=== PATIENT | female | born 1965 | race Caucasian/White ===

== ENCOUNTER 2021-09-07 12:47 | Outpatient (REF) | payer OTHER, SELFPAY ==
--- NOTE | 2021-09-07 15:03 | PFT_ITS ---
FLOWS: FEV1 73% of predicted at 2.22 L. FVC 92% of predicted at 3.59 L. FEV1 to FVC ratio of 0.62. No bronchodilator response. LUNG VOLUMES: Total lung capacity 107% of predicted at 6.10 L. Residual volume 112% of predicted at 2.39 L. Slow vital capacity 105% of predicted at 3.71 L. Expiratory reserve volume 67% of predicted at 0.74 L. Diffusion capacity is mildly decreased. IMPRESSION: Moderate obstructive ventilatory defect with no bronchodilator response. Decreased diffusion capacity suggests emphysema. Louis Muller MD AP/MODL / [id number]
== END 2021-09-07 12:48 | disposition home or self-care (01) ==
LOC: HO.RESP 12:47
PROVIDERS: PCP Nurse Practitioner Family; Visit Provider Nurse Practitioner Family
DX: R06.01 Orthopnea (principal)
CPT/HCPCS: 94060; 94727; 94729

== ENCOUNTER 2021-09-14 14:34 | Outpatient (REF) | payer OTHER, SELFPAY ==
--- NOTE | ~2021-09-14 | CT_ITS ---
EXAMINATION: CT CHEST SCREENING CLINICAL INFORMATION: Nicotine dependence. COMPARISON: CT chest 12/24/2006. TECHNIQUE: Multidetector volumetric CT imaging of the chest is performed without contrast using low dose technique. Additional 2D coronal and sagittal reformatted images and axial 3D maximum intensity projection (MIP) images are generated on the CT workstation. This CT examination was performed using dose optimization techniques as appropriate, variously including the following: *Automated exposure control *Adjustment of mA and/or kV according to patient size (this includes techniques or standardized protocols for targeted exams where dose is matched to indication/reason for exam; i.e. extremities or head) *Use of iterative reconstruction technique DLP: 53 mGy-cm FINDINGS: LUNGS: The lungs are well expanded and clear of acute pneumonic process. There are no pulmonary nodules, mass or consolidation. MEDIASTINUM: The thyroid lobes are symmetric and normal. The central trachea and the bronchi are widely patent. Heart size and the great vessels are normal caliber. There is no pericardial effusion. There is trace coronary artery calcifications present. PLEURA: There is no pleural effusion. No pleural mass or thickening. AXILLA: No abnormal-sized axillary lymph nodes seen. The chest wall is unremarkable. UPPER ABDOMEN: Visualized liver, spleen, pancreas and bilateral adrenal glands are unremarkable. OSSEOUS STRUCTURES: No lytic or sclerotic process seen. CT/CT lung screening IMPRESSION: Unremarkable CT chest without contrast. ASSESSMENT: Lung-RADS category 1: Negative RECOMMENDATION: Low-dose annual CT chest.
== END 2021-09-14 14:35 | disposition home or self-care (01) ==
LOC: HO.CT 14:34
PROVIDERS: PCP Nurse Practitioner Family; Visit Provider Physician Assistant Medical
DX: F17.210 Nicotine dependence, cigarettes, uncomplicated (principal)
CPT/HCPCS: 71271; G0296

== ENCOUNTER 2021-10-03 06:00 | Outpatient (REF) | payer OTHER, SELFPAY ==
[2021-10-03 06:17] LABS: MANUAL DIFF FLAG NO
[2021-10-03 07:49] LABS: Basophils Absolute Auto 0.1 X10*3/uL (0.0-0.2); Basophils Percent Auto 1.2 % (0-2); Eosinophils Absolute Auto 0.4 X10*3/uL (0.0-0.4); Eosinophils Percent Auto 4.4 % (0-4); Hematocrit 46.3 % (37.0-47.0); Hemoglobin 15.6 g/dl (12.0-16.0); Imm Gran Abs Auto 0.02 X10*3/uL (0.00-0.03); Imm Gran Pct Auto 0.2 % (0.0-0.4); Lymphocytes Absolute Auto 4.2 X10*3/uL (1.2-4.9); Lymphocytes Percent Auto 48.9 % (20-40); Mean Corpuscular HGB Conc 33.7 g/dl (31.0-35.0); Mean Corpuscular Volume 97.9 fL (80.0-98.0); Mean Platelet Volume 10.2 fL (9.4-12.3); Monocytes Absolute Auto 0.7 X10*3/uL (0.1-1.2); Monocytes Percent Auto 8.5 % (2-11); Neutrophils Absolute Auto 3.1 x10*3/uL (2.0-8.3); Neutrophils Percent Auto 36.8 % (45-73); Platelet Count 294 X10*3/uL (160-400); Red Blood Count 4.73 X10*6/uL (4.20-5.50); Red Cell Distribution Width 12.5 % (11.0-16.0); White Blood Count 8.5 X10*3/uL (4.8-10.8)
[2021-10-03 08:10] LABS: Alanine Aminotransferase 16 U/L (0-31); Albumin Level 4.4 g/dL (3.5-5.0); Alkaline Phosphatase 79 U/L (39-117); Anion Gap 17 (12-20); Aspartate Amino Transferase 24 U/L (5-31); Bilirubin Total 0.5 mg/dL (0.0-1.0); Blood Urea Nitrogen 12 mg/dL (9-16); Calcium 10.2 mg/dL (8.4-10.2); Carbon Dioxide 28 mmol/L (22-29); Chloride 102 mmol/L (96-108); Cholesterol 241 mg/dL; Estimated Glomerular Filt Rate > 60; Glucose Fasting 89 mg/dL (60-99); HDL Cholesterol 86 mg/dL; LDL Cholesterol Calculated 117 mg/dl; Potassium 5.1 mmol/L (3.3-5.1); Sodium 142 mmol/L (135-145); Total Protein 7.3 g/dL (6.5-8.0); Triglycerides 192 mg/dL
[2021-10-03 08:34] LABS: Folate > 20.0 ng/mL (> or = 4.0); Vitamin B12 481 pg/mL (200-900)
[2021-10-03 08:36] LABS: TSH reflex Free T4 1.08 uIU/mL (0.32-4.0); Vitamin D 25-OH Total 87.6 ng/mL (>30)
== END 2021-10-03 06:01 | disposition home or self-care (01) ==
LOC: HO.LAB 06:00
PROVIDERS: PCP Nurse Practitioner Family; Visit Provider Nurse Practitioner Family
DX: Z13.220 Encounter for screening for lipoid disorders (principal); Z13.29 Encounter for screening for other suspected endocrine disorder; R06.01 Orthopnea; Z76.89 Persons encountering health services in other specified circumstances
CPT/HCPCS: 36415; 80053; 80061; 82306; 82607; 82746; 84443; 85025

== ENCOUNTER 2022-06-19 13:16 | Outpatient (REF) | payer OTHER, SELFPAY ==
[2022-06-25 09:14] LABS: HPV 16 RNA NOT DETECTED (NOT DETECTED); HPV mRNA E6/E7 rflx Detected (Not Detected)
== END 2022-06-19 13:17 | disposition home or self-care (01) ==
LOC: HO.LNP 13:16
PROVIDERS: PCP Nurse Practitioner Family; Visit Provider Advanced Practice Midwife
DX: Z01.419 Encounter for gynecological examination (general) (routine) without abnormal findings (principal)
CPT/HCPCS: 87624; 87625; 88142

== ENCOUNTER 2022-07-24 15:39 | Outpatient (REF) | payer OTHER, SELFPAY ==
--- NOTE | ~2022-07-24 | MM_ITS ---
EXAMINATION: MM SCREENING DIGITAL BREAST TOMOSYNTHESIS, BILATERAL CLINICAL INFORMATION: Screening. Asymptomatic. The lifetime risk of breast cancer based on the Tyrer-Cuzick Model is 16%. COMPARISON: Mammography: 04/04/2010 TECHNIQUE: Digital breast tomosynthesis is performed in both the craniocaudal and mediolateral oblique views along with computer-aided detection (CAD). Synthesized 2D images are generated from the tomosynthesis. FINDINGS: The breasts are heterogeneously dense, which may obscure small masses (ACR BI-RADS breast composition Category c). Breast tissue composition borders on extremely dense. There is a fibronodular parenchymal pattern similar to remote prior exam. No architectural abnormality or developing density. No significant masses. There are probable benign fine calcifications retroareolar right breast on synthesized 2-D views. Patient will be recalled to further characterize with magnification views. Other scattered bilateral calcifications are unremarkable. The axilla are unremarkable. MM/MM tomosynthesis screening BI IMPRESSION: Right: -Fine calcifications retroareolar right breast. Left: -No mammographic evidence of malignancy. ASSESSMENT: BI-RADS 0: Incomplete - Need Additional Imaging Evaluation RECOMMENDATION: 1. Additional views right breast (magnification CC, magnification ML). 2. Radiology department staff will contact the patient for additional imaging. This patient's information was entered into a reminder system with a target due date for their next mammogram.
== END 2022-07-24 15:40 | disposition home or self-care (01) ==
LOC: HO.MAMMO 15:39
PROVIDERS: PCP Nurse Practitioner Family; Visit Provider Advanced Practice Midwife
DX: Z12.31 Encounter for screening mammogram for malignant neoplasm of breast (principal)
CPT/HCPCS: 77063; 77067

== ENCOUNTER 2022-07-30 11:25 | Day surgery (SDC) | payer OTHER, SELFPAY ==
--- NOTE | 2022-07-29 11:46 | HO.ANESPROP2 ---
Documented by User: Adali Hare NP 07/29/22 11:47 HPI - Anesthesia Eval Consult details Narrative: 56yo F for Colonoscopy PMFSH Active Problems Active Problems: All Active Problems (Updated 06/19/22 @ 13:38 by Emma Lugo Eyal) Hypertension (Acute) Hyperlipidemia (Acute) Adult general medical exam (Acute) Cervical cancer screening (Acute) Elevated blood pressure reading (Acute) Screening for colon cancer (Acute) Screening for breast cancer (Acute) Insomnia (Acute) Personal history of nicotine dependence (Acute) Hearing loss in right ear (Acute) Tinnitus of right ear (Acute) COPD (chronic obstructive pulmonary disease) (Acute) Wheezing (Acute) Breathlessness lying flat (Acute) Past Medical History Medical History (Updated 07/30/22 @ 11:45 by Mylene Rush RN) COPD (chronic obstructive pulmonary disease) Hearing loss in right ear High cholesterol Hypertension Personal history of nicotine dependence Tinnitus of right ear Family History Family History Father Smoker CHF (congestive heart failure) Mother Non Hodgkin's lymphoma Pacemaker Lung cancer Paternal Grandmother History of breast cancer Surgical History Surgical History History of tonsillectomy Status post LEEP (loop electrosurgical excision procedure) of cervix Social History Social History Housing: House Alcohol intake: current Alcohol intake frequency: 0-2 drinks per day Alcohol type: hard liquor Patient Tobacco Use Status: Current everyday Tobacco user Tobacco use type: Cigarette Cigarettes Per Day: 20 Years Smoked: (onset 15yo, 1ppd x 40yrs, 40pyh) e-Cigarette/Vaping Use: Never Used Second Hand Smoke Exposure: Yes Use of substances other than those prescribed or required for medical reasons: No Are you DNR?: No Advance Directives: No Advance Directives Information Provided: Yes service: No Current occupational status: unemployed Sexual orientation: Straight/Heterosexual Gender identity: Female Cognitive needs: No Hearing needs: Yes (hearing aide Right Ear) Vision needs: Yes (glasses) Meds Allergies Allergy/AdvReac Type Severity Reaction Status Date / Time Penicillin Allergy Unknown Unknown Uncoded 07/30/22 11:44 Exam Exam Date and Time: July 29, 2022 1146 Assessment and Plan Assessment Anesthesia Assessment: Chart Reviewed Documented by User: Anne Rivero MD 07/30/22 12:42 PMFSH Past Medical History Medical History (Updated 07/30/22 @ 11:45 by Mylene Rush, RN) COPD (chronic obstructive pulmonary disease) Hearing loss in right ear High cholesterol Hypertension Personal history of nicotine dependence Tinnitus of right ear Family History Family History Father Smoker CHF (congestive heart failure) Mother Non Hodgkin's lymphoma Pacemaker Lung cancer Paternal Grandmother History of breast cancer Family history of problems with anesthesia: No Surgical History Surgical History History of tonsillectomy Status post LEEP (loop electrosurgical excision procedure) of cervix History of Problems with Anesthesia: No Social History Social History Housing: House Alcohol intake: current Alcohol intake frequency: 0-2 drinks per day Alcohol type: hard liquor Patient Tobacco Use Status: Current everyday Tobacco user Tobacco use type: Cigarette Cigarettes Per Day: 20 Years Smoked: (onset 15yo, 1ppd x 40yrs, 40pyh) e-Cigarette/Vaping Use: Never Used Second Hand Smoke Exposure: Yes Use of substances other than those prescribed or required for medical reasons: No Are you DNR?: No Advance Directives: No Advance Directives Information Provided: Yes service: No Current occupational status: unemployed Sexual orientation: Straight/Heterosexual Gender identity: Female Cognitive needs: No Hearing needs: Yes (hearing aide Right Ear) Vision needs: Yes (glasses) Meds Allergies Allergy/AdvReac Type Severity Reaction Status Date / Time Penicillin Allergy Unknown Unknown Uncoded 07/30/22 11:44 Exam Airway Mallampati Class: II TM Dist: >3cm Neck ROM: Full Loose/Missing/Broken Teeth: Lower (missing lower front teeth) Heart: rr Lungs: cta Assessment and Plan Assessment Anesthesia Assessment: Anesthesia Plan Discussed and Smoking Cess. Discussed Final Anesthetic Review Family History of Problems with Anesthesia: No History of Problems with Anesthesia: No NPO: Yes ASA Class: II Final Preanesthetic Review: No Changes in Pt Med Stat, Meds/Allgs Chart Reviewed, Consent Obtained/Reviewed and Anes Risks/Benef Reviewed Patient Risk: Low Procedure Risk: Low Anesthetic Plan Anesthetic Plan: MAC: Disposition: Standard PACU
[2022-07-30 11:46] VITALS: BMI 26.6
[2022-07-30 11:51] VITALS: BP 171/97; PULSE 116; RESP 16; TEMP 36.8; O2SAT 96
[2022-07-30] MEDS: Lactated Ringers 1,000 ML 100 ML IVCONT (12:22)
--- NOTE | 2022-07-30 13:13 | P.HPSUR_ITS ---
Pre-Procedural Eval Section A Date of Service: 07/30/22 Section B Chief Complaint: screening Relevant Family History (Specify if Yes): No Relevant Social History: Tobacco Use (alcohol use ) Present Medications: see Short Stay Collaborative assessment Medical History: Significant History (COPD (chronic obstructive pulmonary disease) Hearing loss in right ear High cholesterol Hypertension Personal histor y of nicotine dependence Tinnitus of right ear) History of Previous Operations: Relevant previous surgery/procedure and date(s) (History of tonsillectomy Status post LEEP (loop electrosurgical excision procedure) of cervix) Allergies: Allergies Allergy/AdvReac Type Severity Reaction Status Date / Time Penicillin Allergy Unknown Unknown Uncoded 07/30/22 11:44 Review of Systems Sugical H&P ROS: Negative: Constitution, Cardiovascular, Respiratory, Neurolo gical, Psychiatric, Hem-Onc, Allergic/Immunologic, Gastrointestinal, Genitourinary, Musculoskeletal, Integumentary, Endocrine and Eyes/Ears/Nose/Throat Exam Surgical H&P Exam: Normal: HEENT, Normal: Heart, Normal: Lungs, Normal: Extremities, Normal: Abdomen, Normal: Skin and Normal: Neurological Plan Diagnosis/Plan: Unchanged I have reviewed the history and physical and performed a pertinent physical examination on my patient. No changes have occurred unless specified. Time Spent With Patient Time: Total time managing care of this patient today ____ minutes.
--- NOTE | 2022-07-30 13:15 | W.PM.OPN ---
Operative Note Operative Note Date of Service: 07/30/22 Narrative: Operative Information Procedure Description: Colonoscopy Indication: screening Anesthesia: MAC COLONOSCOPY Instrument: Olympus variable stiffness pediatric scope 190L Colonoscopy Monitoring: Vital signs and clinical assessment, continuous EKG monitoring, Pulse oximetry, Carbon Dioxide monitoring and blood pressure monitoring were done throughout the procedure. Colon withdrawal time was [] minutes. Procedure: The patient was placed in the left lateral decubitis position and pre-procedure medications were administered. After a digital rectal examination of the ano-rectum, the video colonoscope was inserted into the rectum and advanced through the colon to the cecum/TI. The colonoscope was slowly withdrawn in a retrograde panoramic fashion and the colon mucosa was carefully examined including a retroflexed view of the rectum. Findings and interventions are described below. Procedure Difficulty: moderate Findings: Terminal Ileum-normal Cecum:normal Ascending Colon: normal Transverse Colon -normal Descending Colon:normal Sigmoid Colon: moderate severe diverticulosis Rectum: Retroflexion with medium sized internal hemorrhoids, grade I Anorectum - normal Colon preparation: [place] Bowel Preparation Scale Right colon; 2 Transverse colon: 2 Left colon; 2 (0 = Unprepared colon segment with mucosa not seen due to solid stool that cannot be cleared. 1 = Portion of mucosa of the colon segment seen, but other areas of the colon segment not well seen due to staining, residual stool and/or opaque liquid. 2 = Minor amount of residual staining, small fragments of stool and/or opaque liquid, but mucosa of colon segment seen well. 3 = Entire mucosa of colon segment seen well with no residual staining, small fragments of stool or opaque liquid) Impression and Post Procedure Diagnosis: internal hemorrhoids diverticular disease Plan: High fiber diet leaflet Avoid straining at stool, epsom salts and sitz bath, anusol supps or cream Repeat Colonoscopy in 10 years or earlier if clinically indicated Above findings were reviewed with the patient and relevant handouts were provided if indicated.
[2022-07-30 13:39] VITALS: BP 117/69; PULSE 98; RESP 16; TEMP 36.7; O2SAT 98
[2022-07-30 13:55] VITALS: BP 156/92; PULSE 97; RESP 18; TEMP 36.1; O2SAT 98
== END 2022-07-30 15:08 | disposition home or self-care (01) ==
PROVIDERS: PCP Nurse Practitioner Family; Visit Provider Internal Medicine Gastroenterology
PROC: 0DJD8ZZ Inspection of Lower Intestinal Tract, Via Natural or Artificial Opening Endoscopic (ICD-10-PCS; CPT 45378; principal; 2022-07-30 14:40)
DX: Z12.11 Encounter for screening for malignant neoplasm of colon (principal); K57.30 Diverticulosis of large intestine without perforation or abscess without bleeding; K64.0 First degree hemorrhoids; J44.9 Chronic obstructive pulmonary disease, unspecified; H91.91 Unspecified hearing loss, right ear; H93.11 Tinnitus, right ear; I10 Essential (primary) hypertension; E78.5 Hyperlipidemia, unspecified; Z79.899 Other long term (current) drug therapy; Z88.0 Allergy status to penicillin; F17.210 Nicotine dependence, cigarettes, uncomplicated
CPT/HCPCS: 45378; J2250

== ENCOUNTER 2022-08-07 12:47 | Outpatient (REF) | payer OTHER, SELFPAY ==
--- NOTE | ~2022-08-07 | MM_ITS ---
EXAMINATION: MM DIAGNOSTIC DIGITAL MAMMOGRAPHY, RIGHT CLINICAL INFORMATION: Recall from screening for calcifications retroareolar right breast. COMPARISON: Mammography: 07/24/2022, 04/04/2010 TECHNIQUE: Digital mammography is performed in the following views: Magnification right CC, magnification right ML x2. FINDINGS: The breasts are heterogeneously dense, which may obscure small masses (ACR BI-RADS breast composition Category c). The additional magnification views confirm benign coarse retroareolar calcifications, similar to remote prior exam 2010. There are no interval suspicious or pleomorphic calcifications. No significant changes. Results are discussed with the patient at time of visit. MM/MM added views RT IMPRESSION: -Benign retroareolar calcifications. -No significant changes from prior exam 2010. ASSESSMENT: BI-RADS 2: Benign RECOMMENDATION: Routine annual mammography screening. This patient's information was entered into a reminder system with a target due date for their next mammogram.
== END 2022-08-07 12:48 | disposition home or self-care (01) ==
LOC: HO.MAMMO 12:47
PROVIDERS: PCP Nurse Practitioner Family; Visit Provider Nurse Practitioner Family
DX: R92.1 Mammographic calcification found on diagnostic imaging of breast (principal)
CPT/HCPCS: 77065

== ENCOUNTER 2022-08-08 10:04 | Outpatient (REF) | payer OTHER, SELFPAY | END 2022-08-08 10:05 | disposition home or self-care (01) | LOC: HO.LNP 10:04 | PROVIDERS: PCP Nurse Practitioner Family; Visit Provider Obstetrics & Gynecology | DX: R87.810 Cervical high risk human papillomavirus (HPV) DNA test positive (principal); R87.610 Atypical squamous cells of undetermined significance on cytologic smear of cervix (ASC-US) | CPT/HCPCS: 57454; 88305 ==

== ENCOUNTER 2022-08-22 13:33 | Outpatient (AMB) | payer OTHER, SELFPAY ==
--- NOTE | 2022-08-22 13:37 | MHC.OFFVIS ---
Intake Vital Signs 08/22/22 13:39 Height 5 ft 8 in Weight 171 lb 15.369 oz BMI 26.1 BP 140/92 H Intake Visit Reasons: colpo results [employer] Required: No Information Interpreted: non-clinical & clinical Accompanied by: Self / Same As Patient Allergies Penicillin Allergy (Unknown, Uncoded 08/22/22 13:40) Unknown HPI HPI Comments History of Present Illness Details Presenting post colpo for follow-up. The patient is doing well with no complaints. The pathology showed the following: A. Cervix, 6:00, biopsy: Squamous and endocervical glandular mucosa with inflammation and reactive and atrophic changes; negative for dysplasia. B. Cervix, 11:00, biopsy: Squamous and endocervical glandular mucosa with inflammation and reactive changes; negative for dysplasia. C. Endocervix, curettage: Squamous and endocervical glandular mucosa with reactive changes; negative for dysplasia. [facility] Medical History COPD (chronic obstructive pulmonary disease) Hearing loss in right ear High cholesterol Hypertension Personal history of nicotine dependence Tinnitus of right ear Surgical History History of tonsillectomy Hx of colonoscopy Status post LEEP (loop electrosurgical excision procedure) of cervix Family History Father Smoker CHF (congestive heart failure) Mother Non Hodgkin's lymphoma Pacemaker Lung cancer Paternal Grandmother History of breast cancer Social History Housing: House Alcohol intake: current Alcohol intake frequency: 0-2 drinks per day Alcohol type: hard liquor Patient Tobacco Use Status: Current everyday Tobacco user Tobacco use type: Cigarette Cigarettes Per Day: 20 Years Smoked: (onset 15yo, 1ppd x 40yrs, 40pyh) e-Cigarette/Vaping Use: Never Used Second Hand Smoke Exposure: Yes service: No Current occupational status: unemployed Sexual orientation: Straight/Heterosexual Gender identity: Female Cognitive needs: No Hearing needs: Yes (hearing aide Right Ear) Vision needs: Yes (glasses) Review of Systems Const All systems reviewed & are unremarkable except as noted in HPI and below Reports as per HPI and Reports no additional complaints GI Reports no additional complaints Reports no additional complaints Physical Exam Vital Signs: Last Vital Signs BP 140/92 H 08/22/22 13:39 BMI result Body Mass Index 26.1 Assessment & Plan Assessment & Plan (1) ASCUS with positive high risk HPV cervical: Code(s): R87.610 - Atypical squamous cells of undetermined significance on cytologic smear of cervix (ASC-US); R87.810 - Cervical high risk human papillomavirus (HPV) DNA test positive Plan: Discussed with the patient the pathology results of the colposcopy biopsies & endocervical curettage ( negative). Discussed with the patient the sensitivity specificity, positive and negative predictive value in detecting cervical cancer in addition discussed the regression, persistence and progression rates. Recommended co-testing in 12 months, if cytology and or HPV are abnormal will proceed was colposcopy biopsy and endocervical curettage. Instructions given to the patient to schedule a co test appointment in 1 year. All questions answered the patient verbalized understanding. Coding Level of Care Code Est Pt Level 3 (79671) Diagnoses ASCUS with positive high risk HPV cervical R87.610; R87.810
[2022-08-22 13:39] VITALS: BP 140/92; BMI 26.1
== END 2022-08-23 07:22 | disposition home or self-care (01) ==
LOC: HO.HWS 13:33
PROVIDERS: PCP Nurse Practitioner Family; Visit Provider Obstetrics & Gynecology
DX: R87.610 Atypical squamous cells of undetermined significance on cytologic smear of cervix (ASC-US) (principal); R87.810 Cervical high risk human papillomavirus (HPV) DNA test positive
CPT/HCPCS: 99213

== ENCOUNTER → 2022-08-22 13:33 | Outpatient (BNVA) | payer OTHER, SELFPAY | PROVIDERS: PCP Nurse Practitioner Family; Visit Provider Obstetrics & Gynecology ==

== ENCOUNTER 2022-10-02 15:21 | Outpatient (AMB) | payer OTHER, SELFPAY ==
[2022-10-02 15:26] VITALS: BP 158/98; PULSE 97; O2SAT 96; BMI 26.6
--- NOTE | 2022-10-02 15:26 | A.OFFPC_ITS ---
Vital Signs 10/02/22 15:26 10/02/22 16:02 Height 5 ft 8 in Weight 175 lb BMI 26.6 BP 158/98 H 158/92 H Blood Pressure Location Lt brachial Lt brachial Position Sitting Sitting Pulse 97 Pulse Source Pulse Oximeter Temp Source Skin Pulse Oximetry (%) 96 Oxygen Delivery Method Room Air Intake Visit Reasons: PE Intake Note: Patient is here today for a physical. Allergies Penicillin Allergy (Unknown, Uncoded 10/02/22 15:42) Unknown Medication List - Last Reconciled 10/02/22 by CHI Brady albuterol sulfate 90 mcg/actuation (Ventolin HFA) 2 puffs inhalation Q4-6H PRN blood pressure monitor As directed lisinopril 5 mg PO DAILY nicotine 1 patch transdermal Q24H Tobacco use date assessed: 10/02/22 Dental Screening Dental Screen Date: 10/02/22 Did you have a dental visit in the last 12 months?: Yes Did you have a dental problem in the last 6 months where you did not have access to dental care?: No Was dental information given to patient?: Patient has dentist HPI PE HPI Details Patient is a 56-year-old female who presents today for physical exam.? Medical history significant for history of nicotine dependence - restarted smoking 6 months ago 1 pack per day, tinnitus of right ear - patient was seen by ENT provider for this and reports that she was told that there is nothing to be done about this - wears hearing aid right ear, COPD. Patient denies shortness of breath or chest pain.? Pap smear 06/2022 ASCUS and + HVP (colpo negative for dysp lasia) - continue to follow-up with [facility]. Low-dose chest CT scan 2021, recommendation for annual lung CT scan. Mammogram normal 07/2022. Patient has declined pneumonia vaccine. Up-to-date with colonoscopy. Patient reports difficulty falling and staying asleep due to ringing in her right ear- she reports drinking 2-3 shots of whiskey almost nightly-reports she does not need help with alcohol cessation-encouraged patient to try [id number] melatonin or Benadryl as needed for sleep instead. COUNT INCLUDES THE [facility] Medical History (Updated 10/02/22 @ 16:48 by CHI Brady) COPD (chronic obstructive pulmonary disease) Hearing loss in right ear High cholesterol Hypertension Personal history of nicotine dependence Tinnitus of right ear Surgical History (Updated 10/02/22 @ 15:53 by CHI Brady) History of tonsillectomy Hx of colonoscopy Status post LEEP (loop electrosurgical excision procedure) of cervix Family History Father Smoker CHF (congestive heart failure) Mother Non Hodgkin's lymphoma Pacemaker Lung cancer Paternal Grandmother History of breast cancer Social History Housing: House Alcohol intake: current Alcohol intake frequency: 0-2 drinks per day Alcohol type: hard liquor Patient Tobacco Use Status: Current everyday Tobacco user Tobacco use type: Cigarette Cigarettes Per Day: 20 Years Smoked: (onset 15yo, 1ppd x 40yrs, 40pyh) e-Cigarette/Vaping Use: Never Used Second Hand Smoke Exposure: Yes service: No Current occupational status: unemployed Sexual orientation: Straight/Heterosexual Gender identity: Female Cognitive needs: No Hearing needs: Yes (hearing aide Right Ear) Vision needs: Yes (glasses) Questionnaire PHQ-9 Over the last 2 weeks, how often have you been bothered by any of the following problems? 1. Little interest or pleasure in doing things: not at all 2. Feeling down, depressed, or hopeless: not at all 3. Trouble falling or staying asleep, or sleeping too much: not at all 4. Feeling tired or having little energy: not at all 5. Poor appetite or overeating: not at all 6. Feeling bad about yourself - or that you are a failure or have let yourself or your family down: not at all 7. Trouble concentrating on things, such as reading the newspaper or watching television: not at all 8. Moving or speaking so slowly that other people could have noticed. Or the opposite - being so fidgety or restless that you have been moving around a lot more than usual: not at all 9. Thoughts that you would be better off or of hurting yourself in some way: not at all Total score: 0 Depression Screening Interpretation: Negative 66110 - PHQ-9 Billing: Yes Source: Developed by Drs. Jt Harris, Miley B.WWei Nino and colleagues, with an educational josefina from [employer]. Thrive Questionnaire Date Thrive assessed: 03/15/22 I am a: Patient What is your living situation today?: I have a steady place to live Within the past 12 months, did the food you bought not last and you didn't have the money to get more?: Never true Within the past 12 months, did you worry whether your food would run out before you got money to buy more?: Never true Currently or been in a relationship where the following occur: no concerns reported AUDIT C Alcohol Use Questionnaire (AUDIT-C) 1. How often do you have a drink containing alcohol?: 4 or more times a week 2. How many drinks containing alcohol do you have on a typical day when you are drinking?: 3 or 4 3. How often do you have six or more drinks on one occasion?: Weekly Total Score: 8 Score Reviewed/Action Taken: Yes HOLLY-7 AMB Questionnaire HOLLY-7 Date HOLLY - 7 assessed: 10/02/22 Feeling nervous, anxious, or on edge: 3 = Nearly every day (due to loss of hearing ) Not being able to stop or control worryin = Several days Worrying too much about different things: 1 = Several days Trouble relaxin = Several days Being so restless that it is hard to sit still: 1 = Several days Becoming easily annoyed or irritable: 1 = Several days Feeling afraid as if something awful might happen: 0 = Not at all Total HOLLY-7 score (0-4 normal; 5-9 mild; 10-14 moderate; 15-21 severe): 8 Source: Developed by Drs. Jt Harris, Wei Sheth and colleagues, with an educational josefina from [employer]. HOLLY-7 Assessment Billing HOLLY-7 Assessment Tool: HOLLY-7 Assessment 29591 Review of Systems Const Denies body aches, Denies chills, Denies fever(s) and Denies headache(s) Eyes Denies blurry vision and Denies change in vision ENT Reports as per HPI, Denies dizziness, Denies otalgia, Denies headache(s), Denies nasal discharge, Denies sinus pain and Denies sore throat Card Denies chest pain, Denies edema, Denies lightheadedness and Denies dyspnea Resp Denies chest congestion, Denies cough and Denies dyspnea GI Denies abdominal pain, Denies constipation, Denies diarrhea, Denies nausea and Denies vomiting Denies hematuria, Denies dysuria and Denies flank pain Musc Denies myalgias, Denies arthralgias, Denies joint swelling, Denies numbness and Denies tingling Skin/Breast Denies lesions and Denies rash Neuro Denies dizziness, Denies headache(s), Denies numbness and Denies tingling Physical exam (Primary Care) Vital Signs: Last Vital Signs Pulse 97 10/02/22 15:26 BP 158/98 H 10/02/22 15:26 Pulse Ox 96 10/02/22 15:26 Oxygen Delivery Method Room Air 10/02/22 15:26 BMI result Body Mass Index 26.6 Tobacco/Smoking Status: Tobacco use Status Tobacco use date assessed 10/02/22 10/02/22 15:28 Patient Tobacco Use Status Current everyday Tobacco 10/02/22 15:28 Tobacco use type Cigarette 10/02/22 15:28 e-Cigarette/Vaping Use Never Used 10/02/22 15:28 PHQ-9: PHQ-9 Score PHQ-9: Total score 0 10/02/22 15:38 Depression Screening Interpretation: Negative Thrive Assessment: Date of Thrive Assessment Date Thrive assessed 03/15/22 10/02/22 15:28 Currently or been in a relationship where the following occur: no concerns reported Const General: cooperative and no acute distress Orientation/consciousness: patient oriented x3 HENMT Head: Yes normocephalic and Yes atraumatic Face and sinus: Yes sinuses nontender Mouth: oropharynx normal and moist mucous membranes Throat: Yes posterior oropharynx normal Eyes General: appearance normal, both eyes and all related structures Pupils: Equal, round and reactive pupils present EOM: EOMs intact bilaterally Neck Neck: Yes normal visual inspection, Yes full ROM and Yes no lymphadenopathy Thyroid: Thyroid normal Resp Effort & Inspection: normal respiratory effort and able to speak in complete sentences Auscultation: clear to auscultation bilaterally, no crackles, no rales, no rhonchi and no wheezes Cardio Rate: regular rate Rhythm: regular rhythm Heart sounds: S1 normal heart sound present, S2 normal heart sound present and no murmurs GI Palpation (GI): Soft to palpation, not firm, nontender, no guarding, not rigid and no hepatosplenomegaly Auscultation: normal bowel sounds General: No CVA tenderness Back/Spine/Pelvis Back: No CVA tenderness Skin General skin exam: no rashes or lesions noted Neuro General: patient oriented x3 Cranial nerves: Yes Equal, round and reactive pupils present Gait exam (Neuro): Normal gait present Extrem General: Yes full ROM and No edema Assessment and Plan Assessment & Plan (1) Insomnia: Code(s): G47.00 - Insomnia, unspecified Plan: Encouraged patient to try [id number] melatonin or Benadryl as needed Sleep hygiene (2) Personal history of nicotine dependence: Comment: (onset 15yo, 1ppd x 40yrs, 40pyh - quit 08/2021) Code(s): Z87.891 - Personal history of nicotine dependence Plan: Encouraged smoking cessation - patient restarted smoking 6 months ago Start nicotine patch (3) COPD (chronic obstructive pulmonary disease): Comment: (PFT 08/2021 = Moderate obstructive ventilatory defect with no bronchodilator response. Decreased diffusion capacity suggests emphysema) Code(s): J44.9 - Chronic obstructive pulmonary disease, unspecified Plan: Stable Continue albuterol inhaler as needed (4) Hyperlipidemia: Code(s): E78.5 - Hyperlipidemia, unspecified Plan: Low-cholesterol diet Continue to monitor (5) Eye exam, routine: Code(s): Z01.00 - Encounter for examination of eyes and vision without abnormal findings Plan: Patient is due for eye exam, referral placed (6) Adult general medical exam: Comment: No Covid-19 IZ's. PNA IZ declined. Code(s): Z00.00 - Encounter for general adult medical examination without abnormal findings Plan: Repeat in 1 year Blood work ordered (7) Hypertension: Code(s): I10 - Essential (primary) hypertension Plan: Goal BP equal or less than 140/90 Blood pressure elevated in the office today Patient reports that 1 time she checked blood pressure at home systolic blood pressure was in 170s Patient following low-sodium diet Increase lisinopril to 10 mg daily Patient is to follow-up with nurse in 2 weeks for BP recheck Patient denies shortness of breath chest pain (8) Tinnitus of right ear: Comment: (Dr. [facility]) Code(s): H93.11 - Tinnitus, right ear Plan: Will refer to Neurology for evaluation-see HPI for details Plan Follow-up in 4 months or sooner as needed Orders: Orders Vitamin B12 and Folate Today I10 - Essential (primary) hypertension Comprehensive [place]. Panel Fast Today I10 - Essential (primary) hypertension Lipid Panel Today I10 - Essential (primary) hypertension TSH reflex Free T4 Today I10 - Essential (primary) hypertension Vitamin D 25-OH Total Today I10 - Essential (primary) hypertension Complete Blood Count Auto Diff Today I10 - Essential (primary) hypertension Referrals Neurology Referral H93.11 - Tinnitus, right ear Ophthalmology Referral Z01.00 - Encounter for examination of eyes and vision without abnormal findings Medications: New lisinopril 10 mg PO DAILY 30 tabs 2RF I10 - Essential (primary) hypertension nicotine 1 patch transdermal DAILY 28 ea 2RF Z87.891 - Personal history of nicotine dependence Discontinued nicotine Discontinued Reason: Doctor's Order 1 patch transdermal Q24H 14 ea 2RF Z87.891 - Personal history of nicotine dependence lisinopril Discontinued Reason: Doctor's Order 5 mg PO DAILY 30 tabs 2RF I10 - Essential (primary) hypertension Coding Level of Care Code Est Pt Prev Care 40-64y(79277) Diagnoses Insomnia G47.00 Personal history of nicotine dependence Z87.891 COPD (chronic obstructive pulmonary disease) J44.9 Hyperlipidemia E78.5 Eye exam, routine Z01.00 Adult general medical exam Z00.00 Hypertension I10 Tinnitus of right ear H93.11 Additional Codes HOLLY-7 Assessment Billing - HOLLY-7 Assessment Tool: HOLLY-7 Assessment 83901 ([id number])
[2022-10-02 16:02] VITALS: BP 158/92
== END 2022-10-02 16:05 | disposition home or self-care (01) ==
PROVIDERS: Visit Provider Nurse Practitioner Family
DX: Z00.00 Encounter for general adult medical examination without abnormal findings (principal); J44.9 Chronic obstructive pulmonary disease, unspecified; I10 Essential (primary) hypertension; Z87.891 Personal history of nicotine dependence; G47.00 Insomnia, unspecified; E78.5 Hyperlipidemia, unspecified; H93.11 Tinnitus, right ear
CPT/HCPCS: 99396

== ENCOUNTER 2022-10-17 13:13 | Outpatient (REF) | payer OTHER, MEDICAID, SELFPAY ==
[2022-10-17 13:24] LABS: MANUAL DIFF FLAG NO
[2022-10-17 13:52] LABS: Basophils Absolute Auto 0.1 X10*3/uL (0.0-0.2); Basophils Percent Auto 0.9 % (0-2); Eosinophils Absolute Auto 0.2 X10*3/uL (0.0-0.4); Eosinophils Percent Auto 1.6 % (0-4); Hematocrit 47.6 % (37.0-47.0); Hemoglobin 16.4 g/dl (12.0-16.0); Imm Gran Abs Auto 0.06 X10*3/uL (0.00-0.03); Imm Gran Pct Auto 0.6 % (0.0-0.4); Lymphocytes Absolute Auto 4.2 X10*3/uL (1.2-4.9); Lymphocytes Percent Auto 41.2 % (20-40); Mean Corpuscular HGB Conc 34.5 g/dl (31.0-35.0); Mean Corpuscular Hemoglobin 34.2 pg (27.0-33.0); Mean Corpuscular Volume 99.4 fL (80.0-98.0); Mean Platelet Volume 10.1 fL (9.4-12.3); Monocytes Absolute Auto 0.9 X10*3/uL (0.1-1.2); Monocytes Percent Auto 8.3 % (2-11); Neutrophils Absolute Auto 4.9 x10*3/uL (2.0-8.3); Neutrophils Percent Auto 47.4 % (45-73); Platelet Count 291 X10*3/uL (160-400); Red Blood Count 4.79 X10*6/uL (4.20-5.50); Red Cell Distribution Width 12.5 % (11.0-16.0); White Blood Count 10.3 X10*3/uL (4.8-10.8)
[2022-10-17 14:50] LABS: Alanine Aminotransferase 19 U/L (0-31); Albumin Level 4.4 g/dL (3.5-5.0); Alkaline Phosphatase 79 U/L (39-117); Anion Gap 15 (12-20); Aspartate Amino Transferase 35 U/L (5-31); Bilirubin Total 0.9 mg/dL (0.0-1.0); Blood Urea Nitrogen 11 mg/dL (9-16); Calcium 10.2 mg/dL (8.4-10.2); Carbon Dioxide 27 mmol/L (22-29); Chloride 98 mmol/L (96-108); Cholesterol 218 mg/dL (<200); Estimated Glomerular Filt Rate > 60; Glucose Fasting 105 mg/dL (60-99); HDL Cholesterol 81 mg/dL (>40); LDL Cholesterol Calculated 113 mg/dL (<100); Potassium 3.9 mmol/L (3.3-5.1); Sodium 136 mmol/L (135-145); Total Protein 7.5 g/dL (6.5-8.0); Triglycerides 124 mg/dL (<150)
[2022-10-17 14:51] LABS: Folate 14.4 ng/mL (> or = 4.0); TSH reflex Free T4 0.91 uIU/mL (0.32-4.0); Vitamin B12 503 pg/mL (200-900); Vitamin D 25-OH Total 60.5 ng/mL (>30)
== END 2022-10-17 13:14 | disposition home or self-care (01) ==
LOC: HO.LAB 13:13
PROVIDERS: PCP Nurse Practitioner Family; Visit Provider Nurse Practitioner Family
DX: I10 Essential (primary) hypertension (principal); J44.9 Chronic obstructive pulmonary disease, unspecified; G47.00 Insomnia, unspecified; E78.5 Hyperlipidemia, unspecified; R73.01 Impaired fasting glucose
CPT/HCPCS: 36415; 80053; 80061; 82306; 82607; 82746; 84443; 85025

== ENCOUNTER 2023-01-01 12:23 | Outpatient (REF) | payer OTHER, SELFPAY ==
[2023-01-01 13:34] LABS: Estimated Average Glucose 100 mg/dL; Hemoglobin A1c % 5.1 % (<6.0)
[2023-01-01 13:57] LABS: Cholesterol 199 mg/dL (<200); HDL Cholesterol 67 mg/dL (>40); LDL Cholesterol Calculated 103 mg/dL (<100); Triglycerides 146 mg/dL (<150)
== END 2023-01-01 12:24 | disposition home or self-care (01) ==
LOC: HO.LAB 12:23
PROVIDERS: PCP Nurse Practitioner Family; Visit Provider Nurse Practitioner Family
DX: E78.5 Hyperlipidemia, unspecified (principal); R73.01 Impaired fasting glucose
CPT/HCPCS: 36415; 80061; 83036

== ENCOUNTER 2023-01-06 15:53 | Outpatient (REF) | payer OTHER, SELFPAY ==
--- NOTE | ~2023-01-06 | CT_ITS ---
EXAMINATION: CT CHEST LOW-DOSE SCREENING WITHOUT CONTRAST HISTORY: Asymptomatic patient meeting criteria for lung screening. Smoker PATIENT PACK-YEAR HISTORY: 40 year Current Smoker: Yes If former smoker, years since quitting: NA COMPARISON: 09/14/2021 TECHNIQUE: Multidetector volumetric non-contrast CT imaging of the chest was obtained on a [id number] 128 slice scanner using low dose screening CT technique. Axial thin section 0.625 mm reformations in soft tissue and lung windows were obtained. Sagittal and coronal reformations were obtained. Axial MIP images were also created and reviewed. RECONSTRUCTED WIDTH: 1.25 mm x 1.25 mm TOTAL EXAM DLP: 56 mGy-cm CTDIvol: 1.7 mGy FINDINGS: Beer Maker view is unremarkable. LUNGS: Lungs bilaterally symmetrically expanded. No focal lung nodule or mass. No effusion or pneumothorax. Central airways patent. MEDIASTINUM/LYMPHATIC STRUCTURES: No mediastinal, hilar or axillary adenopathy or free fluid collection. THYROID GLAND: Unremarkable to the extent seen. CARDIOVASCULAR STRUCTURES: Aortic and heart size normal. Mild coronary artery calcifications. No pericardial effusion. PLEURA: VISUALIZED ABDOMEN: Included portions of the solid organs in the upper abdomen unremarkable on noncontrast imaging. MUSCULO-SKELETAL: No suspicious focal findings. SPINAL COMPRESSION: Absent. CT/CT lung screening IMPRESSION: No findings suspicious for malignancy/pulmonary nodule(s)/other. LUNG-RADS CATEGORY - 1 negative ASSESSMENT: Negative. PHYSICAL FINDINGS (S CATEGORY): Finding: No incidental findings. Significance category: Normal or normal variant. RECOMMENDATION: Low dose lung CT. overall in 1 year. Visual estimate of coronary calcified plaque burden: None. However, this exam cannot replace a dedicated cardiac CT calcium score for accurate assessment.
== END 2023-01-06 15:54 | disposition home or self-care (01) ==
LOC: HO.CT 15:53
PROVIDERS: PCP Nurse Practitioner Family; Visit Provider Physician Assistant Medical
DX: Z12.2 Encounter for screening for malignant neoplasm of respiratory organs (principal); F17.210 Nicotine dependence, cigarettes, uncomplicated
CPT/HCPCS: 71271

== ENCOUNTER 2023-05-29 16:19 | Outpatient (AMB) | payer OTHER, SELFPAY ==
--- NOTE | 2023-05-29 16:21 | A.OFFPC_ITS ---
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 Blood pressure stable. Lipid panel will be order. Compliant with medications. COPD has been well control and has not seen pulmonology in a while therefore I will refer her. Anxiety stable with hydroxyzine. Denies any chest pain or shortness of breath. Complains of occasional palpitations and like a flutter feeling in the heart. Advised to quit smoking. [facility] Medical History (Updated 05/30/23 @ 10:40 by Sabine Bledsoe MD) COPD (chronic obstructive pulmonary disease) High cholesterol Hypertension Personal history of nicotine dependence Hearing loss in right ear Tinnitus of right ear Surgical History Hx of colonoscopy Status post LEEP (loop electrosurgical excision procedure) of cervix History of tonsillectomy Family History Father Smoker CHF (congestive heart failure) Mother Non Hodgkin's lymphoma Pacemaker Lung cancer Paternal Grandmother History of breast cancer Social History (Updated 05/29/23 @ 16:43 by Sabine Bledsoe MD) Housing: House Alcohol intake: current Alcohol intake frequency: a few times a week Alcohol type: hard liquor Patient Tobacco Use Status: Current everyday Tobacco user Tobacco use type: Cigarette Cigarette Packs Per Day: 1 Cigarettes Per Day: 20 Years Smoked: (onset 15yo, 1ppd x 40yrs, 40pyh) e-Cigarette/Vaping Use: Never Used Second Hand Smoke Exposure: Yes service: No Current occupational status: unemployed Sexual orientation: Straight/Heterosexual Gender identity: Female Cognitive needs: No Hearing needs: Yes (hearing aide Right Ear) Vision needs: Yes (glasses) Questionnaire PHQ-9 Over the last 2 weeks, how often have you been bothered by any of the following problems? 1. Little interest or pleasure in doing things: several days 2. Feeling down, depressed, or hopeless: several days 3. Trouble falling or staying asleep, or sleeping too much: nearly every day 4. Feeling tired or having little energy: not at all 5. Poor appetite or overeating: not at all 6. Feeling bad about yourself - or that you are a failure or have let yourself or your family down: not at all 7. Trouble concentrating on things, such as reading the newspaper or watching television: several days 8. Moving or speaking so slowly that other people could have noticed. Or the opposite - being so fidgety or restless that you have been moving around a lot more than usual: several days 9. Thoughts that you would be better off or of hurting yourself in some way: not at all Total score: 7 Depression Screening Interpretation: Positive Depression Screening Follow-up: Existing condition Depression Screening Done: Yes 36711 - PHQ-9 Billing: Yes Source: Developed by Drs. Jt Harris, Miley Diop, Wei Christine and colleagues, with an educational josefina from [employer]. Thrive Questionnaire Date Thrive assessed: 05/29/23 I am a: Patient What is your living situation today?: I have a steady place to live Within the past 12 months, did the food you bought not last and you didn't have the money to get more?: Never true Within the past 12 months, did you worry whether your food would run out before you got money to buy more?: Never true Do you have trouble paying for medicines?: No Do you have trouble getting transportation to medical appointments?: No Do you have trouble paying your heating and electricity bill?: No Do you have trouble taking care of your child, family member or friend?: No Do you have trouble with day-to-day activities such as bathing, preparing meals, shopping, managing finances, etc.?: No Are you currently unemployed and looking for a job?: No Are you interested in more education?: No Please select the resources that you would like help with: None Currently or been in a relationship where the following occur: no concerns reported THRIVE Score: 0 AUDIT C Alcohol Use Questionnaire (AUDIT-C) 1. How often do you have a drink containing alcohol?: 4 or more times a week 2. How many drinks containing alcohol do you have on a typical day when you are drinking?: 1 or 2 3. How often do you have six or more drinks on one occasion?: Never Total Score: 4 HOLLY-7 AMB Questionnaire HOLLY-7 Date HOLLY - 7 assessed: 05/29/23 Feeling nervous, anxious, or on edge: 2 = More than half the days Not being able to stop or control worryin = Not at all Worrying too much about different things: 1 = Several days Trouble relaxin = Several days Being so restless that it is hard to sit still: 0 = Not at all Becoming easily annoyed or irritable: 1 = Several days Feeling afraid as if something awful might happen: 1 = Several days Total HOLLY-7 score (0-4 normal; 5-9 mild; 10-14 moderate; 15-21 severe): 6 Source: Developed by Drs. Jt Harris, Miley Diop, Wei Christine and colleagues, with an educational josefina from [employer]. HOLLY-7 Assessment Billing HOLLY-7 Assessment Tool: HOLLY-7 Assessment 20688 Review of Systems Const All systems reviewed & are unremarkable except as noted in HPI and below Eyes Reports no additional complaints, Denies change in vision and Denies other visual disturbances Card Denies chest pain at rest, Denies chest pain with activity, Reports rapid heart rate, Denies edema, Denies irregular heart rhythm, Denies claudication, Denies dyspnea, Denies dyspnea on exertion, Denies orthopnea, Denies paroxysmal nocturnal dyspnea and Denies slow heart rate Resp Denies cough, Denies dyspnea and Denies dyspnea on exertion Neuro Denies behavioral changes and Denies lack of coordination Psych Denies behavioral changes Physical exam (Primary Care) Vital Signs: Last Vital Signs BP 130/82 05/29/23 16:22 BMI result Body Mass Index 25.5 Tobacco/Smoking Status: Tobacco use Status Tobacco use date assessed 05/29/23 05/29/23 16:31 Patient Tobacco Use Status Current everyday Tobacco 05/29/23 16:43 Tobacco use type Cigarette 05/29/23 16:43 e-Cigarette/Vaping Use Never Used 05/29/23 16:43 Are you ready to quit: Yes Tobacco cessation counseling provided: Yes Items discussed: Nicotine replacement and [employer]uitWorks Relapse Prevention: discussed the importance of a supportive environment, discussed extending NRT, discussed negative mood or depression after quitting, weight gain after smoking is common and discussed dietary, exercise and/or lifestyle changes Number of minutes spent counselin CPT code: 94110 - 4-10 Minutes PHQ-9: PHQ-9 Score PHQ-9: Total score 7 05/29/23 16:35 Depression Screening Interpretation: Positive Depression Screening Follow-up: Existing condition Thrive Assessment: Date of Thrive Assessment Date Thrive assessed 05/29/23 05/29/23 16:31 Currently or been in a relationship where the following occur: no concerns reported Resp Effort & Inspection: normal respiratory effort Auscultation: clear to auscultation bilaterally Cardio Jugular venous distension: no JVD Rate: regular rate Rhythm: regular rhythm Heart sounds: S1 normal heart sound present and S2 normal heart sound present Extrem General: Yes full ROM Psych Appearance: grossly normal Assessment and Plan Assessment & Plan (1) COPD (chronic obstructive pulmonary disease): Comment: (PFT 08/2021 = Moderate obstructive ventilatory defect with no bronchodilator response. Decreased diffusion capacity suggests emphysema) Code(s): J44.9 - Chronic obstructive pulmonary disease, unspecified Plan: Use rescue inhaler as needed. Follow-up with pulmonology. (2) Hypertension: Code(s): I10 - Essential (primary) hypertension Plan: Continue lisinopril. Blood pressure goal is equal or less than 130/80. (3) Hyperlipidemia: Code(s): E78.5 - Hyperlipidemia, unspecified Plan: Continue low-cholesterol diet. Repeat lipid panel. (4) Anxiety: Code(s): F41.9 - Anxiety disorder, unspecified Plan: Continue hydroxyzine as needed. (5) Nicotine dependence: Code(s): F17.200 - Nicotine dependence, unspecified, uncomplicated Plan: Restart a nicotine patch. She was advised about 1-800- quit now. Orders: Orders Comprehensive [place]. Panel Fast 05/29/23 I10 - Essential (primary) hypertension Lipid Panel 05/29/23 I10 - Essential (primary) hypertension ECG 12 lead EKG 05/29/23 R00.2 - Palpitations Referrals Ophthalmology Referral Z01.00 - Encounter for examination of eyes and vision without abnormal findings Pulmonology Referral J44.9 - Chronic obstructive pulmonary disease, unspecified Medications: New nicotine 1 patch transdermal Q24H 14 ea 1RF 14 days Changed From lisinopril 10 mg PO DAILY 30 tabs 2RF I10 - Essential (primary) hypertension To lisinopril 10 mg PO DAILY 90 tabs 2RF 90 days I10 - Essential (primary) hypertension From hydroxyzine HCl 25 mg PO BID PRN 30 tabs 0RF anxiety F41.9 - Anxiety disorder, unspecified To hydroxyzine HCl 25 mg PO BID PRN 30 tabs 0RF anxiety 30 days F41.9 - Anxiety disorder, unspecified Discontinued nicotine Discontinued Reason: Patient Completed Course 1 patch transdermal DAILY 28 ea 2RF Z87.891 - Personal history of nicotine dependence Coding Level of Care Code Est Pt Level 4 (46182) Diagnoses COPD (chronic obstructive pulmonary disease) J44.9 Hypertension I10 Hyperlipidemia E78.5 Anxiety F41.9 Nicotine dependence F17.200 Additional Codes HOLLY-7 Assessment Billing - HOLLY-7 Assessment Tool: HOLLY-7 Assessment 36473 ([id number]) Vital Signs *Quality* - CPT code: 56327 - 4-10 Minutes ([id number]) Time Spent (min) 25
[2023-05-29 16:22] VITALS: BP 130/82; BMI 25.5
== END 2023-05-29 17:25 | disposition home or self-care (01) ==
PROVIDERS: PCP Internal Medicine; Visit Provider Internal Medicine
DX: J44.9 Chronic obstructive pulmonary disease, unspecified (principal); I10 Essential (primary) hypertension; E78.5 Hyperlipidemia, unspecified; F41.9 Anxiety disorder, unspecified; F17.200 Nicotine dependence, unspecified, uncomplicated
CPT/HCPCS: 99214

== ENCOUNTER 2023-06-23 10:01 | Outpatient (AMB) | payer OTHER, SELFPAY ==
[2023-06-23 10:10] VITALS: BP 150/78; PULSE 121; O2SAT 98; BMI 25.3
--- NOTE | 2023-06-23 10:10 | MHC.OFFVIS ---
Vital Signs 06/23/23 10:10 Height 5 ft 8 in Weight 166 lb 7.184 oz BMI 25.3 BP 150/78 H Blood Pressure Location Rt brachial Position Sitting Pulse 121 H Pulse Source Pulse Oximeter Pulse Oximetry (%) 98 Oxygen Delivery Method Room Air Intake Visit Reasons: COPD Allergies Penicillin Allergy (Unknown, Uncoded 06/23/23 10:13) Unknown HPI HPI COPD: Details: Miladys is a pleasant 57 year old female, current smoker, with 35+ pack year history, With underlying COPD and hypertension. She was referred by PCP for pulmonary evaluation. At baseline she is moderately controlled on albuterol p.r.n. She continues to report intermittent productive cough and occasional wheezing. She denies dyspnea or chest tigthness. She denies any prior history of asthma. She denies seasonal allergies. She denies any hospitalizations related to COPD exacerbations. She denies any recent antibiotics or need for prednisone. 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 She uses albuterol almost on a daily basis with good effect. She reports brother with asthma in mother, never smoker, with lung cancer. She is in the lung cancer screening program and her last chest CT was in December 2022 with a lung rads 1 reading. PFT 08/2021. She is currently smoking about a pack a day after recently quitting for 6 weeks. She has nicotine patches at home and is interested in smoking cessation. She denies any occupational exposures. She denies any seasonal allergies. [facility] Medical History COPD (chronic obstructive pulmonary disease) High cholesterol Hypertension Personal history of nicotine dependence Hearing loss in right ear Tinnitus of right ear Surgical History Hx of colonoscopy Status post LEEP (loop electrosurgical excision procedure) of cervix History of tonsillectomy Family History Father Smoker CHF (congestive heart failure) Mother Non Hodgkin's lymphoma Pacemaker Lung cancer Paternal Grandmother History of breast cancer Social History Housing: House Alcohol intake: current Alcohol intake frequency: a few times a week Alcohol type: hard liquor Patient Tobacco Use Status: Current everyday Tobacco user Tobacco use type: Cigarette Cigarette Packs Per Day: 1 Cigarettes Per Day: 20 Years Smoked: (onset 15yo, 1ppd x 40yrs, 40pyh) e-Cigarette/Vaping Use: Never Used Second Hand Smoke Exposure: Yes service: No Current occupational status: unemployed Sexual orientation: Straight/Heterosexual Gender identity: Female Cognitive needs: No Hearing needs: Yes (hearing aide Right Ear) Vision needs: Yes (glasses) Review of Systems Const Denies chills, Denies excessive sweating, Denies fever(s), Denies headache(s) and Denies night sweats Eyes Denies dry eyes, Denies irritation and Denies itchy eyes ENT Reports Normal hearing present, Denies headache(s), Denies nasal congestion, Denies nasal discharge, Denies post nasal drip and Denies sore throat Card Denies chest pain, Denies chest pain at rest, Denies chest pain with activity, Denies claudication, Denies leg edema, Denies orthopnea and Denies paroxysmal nocturnal dyspnea Resp Denies chest congestion, Denies excessive phlegm production, Denies pain on inspiration, Denies pain with cough and Denies stridor Musc Denies myalgias Neuro Reports Normal hearing present and Denies headache(s) Endo Denies excessive sweating Carlos/Lymph Denies lymphadenopathy Aller/Immun Denies itchy eyes and Denies seasonal rhinorrhea Physical Exam Vital Signs: Last Vital Signs Pulse 121 H 06/23/23 10:10 BP 150/78 H 06/23/23 10:10 Pulse Ox 98 06/23/23 10:10 Oxygen Delivery Method Room Air 06/23/23 10:10 BMI result Body Mass Index 25.3 Const General: cooperative, healthy appearing, comfortable, no acute distress, well developed and alert Orientation/consciousness: patient oriented x3 Limitations: no limitations HEENT Head: Yes normal to inspection, Yes normocephalic and Yes atraumatic Ears: hearing grossly normal bilaterally and external ears normal Eyes General: appearance normal, both eyes and all related structures Eyelids: Yes eyelids normal Sclerae: sclerae normal EOM: EOMs intact bilaterally Neck Neck: Yes normal visual inspection and Yes no lymphadenopathy Lymphatic: no lymphadenopathy noted Chest Chest palpation & inspection: normal inspection of the chest Resp Other: Expiratory wheezing throughout with diminished lung sounds Effort & Inspection: normal respiratory effort, able to speak in complete sentences, no audible wheezes, no cough, no stridor, not tachypneic, no tripod positioning and no use of accessory muscles Cardio Jugular venous distension: no JVD Rhythm: regular rhythm Skin Other: warm, dry General skin exam: no rashes or lesions noted Neuro General: patient oriented x3 Cranial nerves: Yes Normal hearing present Cognition (Neuro): normal cognition Gait exam (Neuro): Normal gait present Extrem General: Yes normal to inspection, Yes capillary refill normal, Yes no clubbing, cyanosis or edema and Yes no pedal edema Psych Appearance: grossly normal and well kempt Speech and movement: Normal speech and movement present and Clear speech present Affect: normal affect Attitude: cooperative Thought process: Normal thought process present Thought content: Normal thought content present Insight: Good insight present (Psych) Judgement: Good judgement present (Psych) Assessment & Plan Assessment & Plan (1) COPD (chronic obstructive pulmonary disease): Code(s): J44.9 - Chronic obstructive pulmonary disease, unspecified Category: Medical Plan Miladys's symptoms are likely related to underlying COPD. PFT from 2019 to revealed moderate obstructive defect with decreased diffusion capacity suggestive of emphysema. Patient is a part of the lung cancer screening program, last chest CT was read as a lung RADS 1. She has some upcoming chest CT due in December 2023. On exam patient with expiratory wheezing throughout, she was agreeable to a short course of prednisone. We discussed a daily inhaler but she would like to hold off at this time. Advised to continue to use albuterol p.r.n. Patient also tachycardic, PCP had entered EKG order. Patient will have this performed. All questions were answered and patient is in agreement of plan. Will follow-up in 2-3 months or sooner if needed. Medications: New prednisone 40 mg (2 x 20 mg) PO DAILY 10 tabs 0RF Coding Level of Care Code New Pt Level 4 (41519) Diagnoses COPD (chronic obstructive pulmonary disease) J44.9
== END 2023-06-23 11:00 | disposition home or self-care (01) ==
PROVIDERS: PCP Internal Medicine; Visit Provider Nurse Practitioner Family
DX: J44.9 Chronic obstructive pulmonary disease, unspecified (principal)
CPT/HCPCS: 99204

== ENCOUNTER → 2023-06-23 10:01 | Outpatient (BNVA) | payer OTHER, SELFPAY | PROVIDERS: PCP Internal Medicine; Visit Provider Nurse Practitioner Family ==

== ENCOUNTER 2023-06-24 12:55 | Outpatient (REF) | payer OTHER, SELFPAY ==
[2023-07-02 05:24] LABS: HPV 16 RNA NOT DETECTED (NOT DETECTED); HPV mRNA E6/E7 rflx Detected (Not Detected)
== END 2023-06-24 12:56 | disposition home or self-care (01) ==
LOC: HO.LNP 12:55
PROVIDERS: Visit Provider Advanced Practice Midwife
DX: Z01.419 Encounter for gynecological examination (general) (routine) without abnormal findings (principal); R87.610 Atypical squamous cells of undetermined significance on cytologic smear of cervix (ASC-US); R87.810 Cervical high risk human papillomavirus (HPV) DNA test positive
CPT/HCPCS: 87624; 87625; 88142

== ENCOUNTER 2023-06-24 12:55 | Outpatient (AMB) | payer OTHER, SELFPAY ==
[2023-06-24 13:02] VITALS: BP 132/74; BMI 25.2
--- NOTE | 2023-06-24 13:02 | A.OFFVIS_ITS ---
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 Doing well with no concerns. Attempting to eat a healthy diet with calcium and vitamin D, no regular exercise. Currently rarely sexually active. Denies any vaginal dryness or irritation. STI testing offered; she declines. Last pap smear; 2022- ASCUS/HPV+, COLPO-neg. Status post LEEP procedure. Last mammogram; negative. Colonoscopy is UTD. Denies any family history of ovarian or colon cancer. FH breast cancer-PGM. Everyday smoker, has attempted in the past multiple times. REPLACED BY [facility] Medical History COPD (chronic obstructive pulmonary disease) High cholesterol Hypertension Personal history of nicotine dependence Hearing loss in right ear Tinnitus of right ear Surgical History Hx of colonoscopy Status post LEEP (loop electrosurgical excision procedure) of cervix History of tonsillectomy Family History Father Smoker CHF (congestive heart failure) Mother Non Hodgkin's lymphoma Pacemaker Lung cancer Paternal Grandmother History of breast cancer Social History Housing: House Alcohol intake: current Alcohol intake frequency: a few times a week Alcohol type: hard liquor Patient Tobacco Use Status: Current everyday Tobacco user Tobacco use type: Cigarette Cigarette Packs Per Day: 1 Cigarettes Per Day: 20 Years Smoked: (onset 15yo, 1ppd x 40yrs, 40pyh) e-Cigarette/Vaping Use: Never Used Second Hand Smoke Exposure: Yes service: No Current occupational status: unemployed Sexual orientation: Straight/Heterosexual Gender identity: Female Cognitive needs: No Hearing needs: Yes (hearing aide Right Ear) Vision needs: Yes (glasses) Female Reproductive History Menstrual Age of Menarche: 10 control method: none Total pregnancies: 2 Ab induced: 2 Date of last pap smear: 06/20/22 (ASCUS +HPV) History of abnormal pap smear: Yes Review of Systems Const All systems reviewed & are unremarkable except as noted in HPI and below Reports as per HPI Eyes Reports no additional complaints ENT Reports no additional complaints Card Reports no additional complaints Resp Reports no additional complaints GI Reports as per HPI and Reports no additional complaints Reports as per HPI Musc Reports no additional complaints Skin/Breast Reports as per HPI Neuro Reports no additional complaints Psych Reports no additional complaints Endo Reports no additional complaints Carlos/Lymph Reports no additional complaints Aller/Immun Reports no additional complaints Physical Exam Vital Signs: Last Vital Signs BP 132/74 06/24/23 13:02 BMI result Body Mass Index 25.2 Const General: cooperative, healthy appearing, no acute distress, well developed and alert Orientation/consciousness: patient oriented x3 HEENT Head: Yes normal to inspection Eyes General: appearance normal, both eyes and all related structures Neck Neck: Yes normal visual inspection Thyroid: Thyroid normal Chest Chest palpation & inspection: normal inspection of the chest and other (no puckering, dimpling, peau de orange, retraction, discharge, masses) Breast/axilla inspection: normal inspection of the breasts Breast/axilla palpation: normal palpation of the breasts Resp Effort & Inspection: normal respiratory effort GI Inspection: Yes normal to inspection Palpation (GI): Soft to palpation Rectal Exam - Female: deferred General: Yes bladder normal to palpation External Female Exam: normal external appearance and normal appearance of the urethra Speculum Exam - Vagina: normal appearance of the vagina, normal palpation, normal vaginal discharge and vagina atrophic Speculum Exam - Cervix: normal appearance of the cervix, normal palpation and Other cervical findings present (Post LEEP appearance, bled slightly with Pap) Bimanual exam- vagina & uterus: normal bimanual exam, normal palpation, uterine size normal, bladder normal to palpation, normal palpation and non-tender Bimanual Exam- Adnexa, other: no masses Skin General skin exam: no rashes or lesions noted Rashes: no rashes Neuro General: patient oriented x3 Cognition (Neuro): normal cognition Extrem General: Yes normal to inspection Psych Attitude: cooperative Thought process: Normal thought process present Assessment & Plan Assessment & Plan (1) Encounter for well woman exam with routine gynecological exam: Code(s): Z01.419 - Encounter for gynecological examination (general) (routine) without abnormal findings Category: Medical Plan: Discussed: Current recommendations for pap smears per ASCCP guidelines. Repeat Pap today await results for plan of care. Breast awareness, periodic self breast exams and yearly mammogram. Maintain a healthy lifestyle, well balanced diet including Calcium 1,200 mg and Vitamin D 600 IU daily, and routine exercise. Encouraged to quit tobacco when able to. Call the office with any postmenopausal bleeding. Patient verbalizes understanding and agrees to the plan of care. She was given opportunity to ask questions and all questions were answered to the best of my ability. RTO in 1 year for annual assistant inventory manager exam. This note is constructed using voice recognition software. While every effort has been made to ensure accuracy, architect marine errors may have been included. Orders: Orders Pap Smear Today R87.610 - Atypical squamous cells of undetermined significance on cytologic smear of cervix (ASC-US), R87.810 - Cervical high risk human papillomavirus (HPV) DNA test positive Coding Level of Care Code Est Pt Prev Care 40-64y(37136) Diagnoses Encounter for well woman exam with routine gynecological exam Z01.419
== END 2023-06-24 15:02 | disposition home or self-care (01) ==
PROVIDERS: Visit Provider Advanced Practice Midwife
DX: Z01.419 Encounter for gynecological examination (general) (routine) without abnormal findings (principal)
CPT/HCPCS: 99396

== ENCOUNTER 2023-07-30 15:18 | Outpatient (REF) | payer OTHER, SELFPAY ==
--- NOTE | ~2023-07-30 | MM_ITS ---
EXAMINATION: MM SCREENING DIGITAL BREAST TOMOSYNTHESIS, BILATERAL CLINICAL INFORMATION: Screening. Asymptomatic. COMPARISON: Mammography: This study is compared with prior exams dating back to 2010. TECHNIQUE: Digital breast tomosynthesis is performed in both the craniocaudal and mediolateral oblique views along with computer-aided detection (CAD). Synthesized 2D images are generated from the tomosynthesis. FINDINGS: The breasts are heterogeneously dense, which may obscure small masses (ACR BI-RADS breast composition Category c). There are no significant masses, abnormal calcifications, or other abnormalities. There is a partially calcified, benign subareolar mass in the right breast which is herbicide service sales representative of a small involuting fibroadenoma. MM/MM tomosynthesis screening BI IMPRESSION: No mammographic evidence of malignancy. ASSESSMENT: BI-RADS BI-RADS 2 - Benign Findings RECOMMENDATION: Routine annual mammography screening. 1 year F/U This examination should not preclude the clinical evaluation of a suspicious palpable abnormality. This patient's information was entered into a reminder system with a target due date for their next mammogram.
== END 2023-07-30 15:19 | disposition home or self-care (01) ==
LOC: HO.MAMMO 15:18
PROVIDERS: PCP Internal Medicine; Visit Provider Internal Medicine
DX: Z12.31 Encounter for screening mammogram for malignant neoplasm of breast (principal)
CPT/HCPCS: 77063; 77067

== ENCOUNTER → 2023-07-30 15:30 | Outpatient (BNV) | payer OTHER, SELFPAY | PROVIDERS: PCP Internal Medicine; Visit Provider Radiology Diagnostic Radiology | DX: Z12.31 Encounter for screening mammogram for malignant neoplasm of breast (principal) | CPT/HCPCS: 77063; 77067 ==

== ENCOUNTER 2023-08-06 15:47 | Outpatient (AMB) | payer OTHER, SELFPAY ==
--- NOTE | 2023-08-06 15:51 | MHC.OFFVIS ---
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 Information Interpreted: non-clinical & clinical Data Processing Specialist: Data Processing Specialist Present (Trina Pearce JAYEyal) Accompanied by: Self / Same As Patient Allergies Penicillin Allergy (Unknown, Uncoded 08/06/23 15:57) Unknown Post menopausal: Yes HPI Comments Details: Presenting for colposcopy for ascus/HPV E6/E7 positive HPV 16/18/45 negative PFSH Medical History COPD (chronic obstructive pulmonary disease) High cholesterol Hypertension Personal history of nicotine dependence Hearing loss in right ear Tinnitus of right ear Surgical History Hx of colonoscopy Status post LEEP (loop electrosurgical excision procedure) of cervix History of tonsillectomy Family History Father Smoker CHF (congestive heart failure) Mother Non Hodgkin's lymphoma Pacemaker Lung cancer Paternal Grandmother History of breast cancer Social History Housing: House Alcohol intake: current Alcohol intake frequency: a few times a week Alcohol type: hard liquor Patient Tobacco Use Status: Current everyday Tobacco user Tobacco use type: Cigarette Cigarette Packs Per Day: 1 Cigarettes Per Day: 20 Years Smoked: (onset 15yo, 1ppd x 40yrs, 40pyh) e-Cigarette/Vaping Use: Never Used Second Hand Smoke Exposure: Yes service: No Current occupational status: unemployed Sexual orientation: Straight/Heterosexual Gender identity: Female Cognitive needs: No Hearing needs: Yes (hearing aide Right Ear) Vision needs: Yes (glasses) Female Reproductive History Menstrual Age of Menarche: 10 Review of Systems Const All systems reviewed & are unremarkable except as noted in HPI and below Reports as per HPI and Reports no additional complaints GI Reports no additional complaints Reports no additional complaints Office Procedures Colposcopy Colposcopy: Pre-Procedure Counseling: Before beginning the procedure, I conducted comprehensive counseling with the patient. We thoroughly discussed the procedure itself, including its details, alternatives, and all associated risks. This included but not limited to the following complications such as bleeding, infection, and injury to the vagina, bladder, and vessels, as well as the potential need for transfusion with all its associated risks. Subsequently, the patient sign the consent. Pap smear result: Ascus/HPV E6/E7 positive Procedure: During the procedure, the following steps were performed: A speculum was inserted, and acetic acid was applied. Colposcopy was conducted, allowing visualization of the transformation zone. Acetowhite lesions were identified at the 6+7+11 o'clock position. Cervical biopsies were obtained from the 6+7 o'clock position, followed by an endocervical curettage (ECC). Vaginoscopy of the upper vagina revealed no evidence of aceto-white lesions. Hemostasis was achieved using Monsel solution, and the patient tolerated the procedure well. Post-Procedure Instructions: The patient was advised to promptly contact the office or the after hours answering service or go to the emergency room if experiencing a temperature exceeding 100.4?F, abdominal pain, nausea/vomiting, or bleeding. Additionally, the patient was instructed to abstain from vaginal intercourse and bathtub use. The patient confirmed understanding of these instructions. Discharge Instructions: The patient was instructed to schedule a follow-up appointment in 2 weeks for further evaluation and management. Please note that this note was generated using a voice recognition program, and errors may have occurred during program analyst. [id number] of cervix including upper vagina with biopsy and ECC Procedure code (CPT) selection complete Assessment & Plan Assessment & Plan (1) ASCUS with positive high risk HPV cervical: Code(s): R87.610 - Atypical squamous cells of undetermined significance on cytologic smear of cervix (ASC-US); R87.810 - Cervical high risk human papillomavirus (HPV) DNA test positive Category: Medical Plan: Colposcopy done, see procedure note Orders: Orders AMB Colposcopy Today R87.610 - Atypical squamous cells of undetermined significance on cytologic smear of cervix (ASC-US), R87.810 - Cervical high risk human papillomavirus (HPV) DNA test positive Coding Level of Care Code Procedure Only Diagnoses ASCUS with positive high risk HPV cervical R87.610; R87.810 CPT Codes Colposcopy - CPT: 64519-Fkvsukqau of cervix including upper vagina with biopsy and ECC ([id number])
[2023-08-06 15:56] VITALS: BP 126/80; BMI 25.1
== END 2023-08-07 07:37 | disposition home or self-care (01) ==
PROVIDERS: PCP Internal Medicine; Visit Provider Obstetrics & Gynecology
DX: R87.610 Atypical squamous cells of undetermined significance on cytologic smear of cervix (ASC-US) (principal); R87.810 Cervical high risk human papillomavirus (HPV) DNA test positive
CPT/HCPCS: 57454

== ENCOUNTER 2023-08-06 15:47 | Outpatient (REF) | payer OTHER, SELFPAY | END 2023-08-06 15:48 | disposition home or self-care (01) | LOC: HO.LNP 15:47 | PROVIDERS: PCP Internal Medicine; Visit Provider Obstetrics & Gynecology | DX: R87.610 Atypical squamous cells of undetermined significance on cytologic smear of cervix (ASC-US) (principal); R87.810 Cervical high risk human papillomavirus (HPV) DNA test positive | CPT/HCPCS: 57454; 88305; 88342; 88360 ==

== ENCOUNTER 2023-08-25 14:46 | Outpatient (AMB) | payer OTHER, SELFPAY ==
--- NOTE | 2023-08-25 14:56 | A.OFFVIS_ITS ---
Vital Signs 08/25/23 14:58 Height 5 ft 8 in Weight 165 lb 5.547 oz BMI 25.1 Intake Visit Reasons: colpo results Allergies Penicillin Allergy (Unknown, Uncoded 08/06/23 15:57) Unknown HPI Comments Details: Presenting post colpo for follow-up. The patient is doing well with no complaints. The pathology showed the following: A. Endocervix, curettage: Strips of endocervical epithelium within normal limits. B. Cervix, 6 o'clock, biopsy: - Low-grade squamous intraepithelial lesion (MATILDA 1). - Endocervical epithelium within normal limits. C. Cervix, 7 o'clock, biopsy: - Low-grade squamous intraepithelial lesion (MATILDA 1). - Endocervical epithelium within normal limits. D. Cervix, 11 o'clock, biopsy: Scant fragments of endocervical epithelium within normal limits; no squamous epithelium identified [facility] Medical History Dysplasia of cervix, low grade (MATILDA 1) COPD (chronic obstructive pulmonary disease) High cholesterol Hypertension Personal history of nicotine dependence Hearing loss in right ear Tinnitus of right ear Surgical History Hx of colonoscopy Status post LEEP (loop electrosurgical excision procedure) of cervix History of tonsillectomy Family History Father Smoker CHF (congestive heart failure) Mother Non Hodgkin's lymphoma Pacemaker Lung cancer Paternal Grandmother History of breast cancer Social History Housing: House Alcohol intake: current Alcohol intake frequency: a few times a week Alcohol type: hard liquor Patient Tobacco Use Status: Current everyday Tobacco user Tobacco use type: Cigarette Cigarette Packs Per Day: 1 Cigarettes Per Day: 20 Years Smoked: (onset 15yo, 1ppd x 40yrs, 40pyh) e-Cigarette/Vaping Use: Never Used Second Hand Smoke Exposure: Yes service: No Current occupational status: unemployed Sexual orientation: Straight/Heterosexual Gender identity: Female Cognitive needs: No Hearing needs: Yes (hearing aide Right Ear) Vision needs: Yes (glasses) Female Reproductive History Menstrual Age of Menarche: 10 Review of Systems Const All systems reviewed & are unremarkable except as noted in HPI and below Reports as per HPI and Reports no additional complaints GI Reports no additional complaints Reports no additional complaints Physical Exam Vital Signs: BMI result Body Mass Index 25.1 Assessment & Plan Assessment & Plan (1) Dysplasia of cervix, low grade (MATILDA 1): Comment: 07/02 ascus/HPV positive, colpo biopsy/ECC negative 07/03 ascus/HPV positive, colpo biopsy/ECC AMTILDA 1 Code(s): N87.0 - Mild cervical dysplasia Category: Medical Plan: Discussed with the patient the pathology results of the colposcopy biopsies & endocervical curettage ( mild dysplasia-MATILDA 1). Discussed with the patient the sensitivity specificity, positive and negative predictive value in detecting cervical cancer in addition discussed the regression, persistence and progression rates. Recommended co-testing in 12 months, if cytology and or HPV are abnormal will proceed was colposcopy biopsy and endocervical curettage, if lesions gets worse or stays persistent for 2 years will proceed with loop electric excision procedure. Instructions given to the patient to schedule a co test appointment in 1 year. All questions answered the patient verbalized understanding. Coding Level of Care Code Est Pt Level 3 (37708) Diagnoses Dysplasia of cervix, low grade (MATILDA 1) N87.0
[2023-08-25 14:58] VITALS: BMI 25.1
== END 2023-08-25 15:28 | disposition home or self-care (01) ==
LOC: HO.HWS 14:46
PROVIDERS: PCP Internal Medicine; Visit Provider Obstetrics & Gynecology
DX: N87.0 Mild cervical dysplasia (principal)
CPT/HCPCS: 99213

== ENCOUNTER → 2023-08-25 14:46 | Outpatient (BNVA) | payer OTHER, SELFPAY | PROVIDERS: PCP Internal Medicine; Visit Provider Obstetrics & Gynecology ==

== ENCOUNTER 2023-09-22 10:22 | Outpatient (AMB) | payer OTHER, SELFPAY ==
[2023-09-22 10:34] VITALS: BP 114/62; PULSE 101; O2SAT 96; BMI 24.8
--- NOTE | 2023-09-22 10:34 | A.OFFVIS_ITS ---
Vital Signs 09/22/23 10:34 Height 5 ft 8 in Weight 163 lb 2.273 oz BMI 24.8 BP 114/62 Blood Pressure Location Lt brachial Position Sitting Pulse 101 H Pulse Source Pulse Oximeter Pulse Oximetry (%) 96 Oxygen Delivery Method Room Air Intake Visit Reasons: COPD Allergies Penicillin Allergy (Unknown, Uncoded 09/22/23 10:37) Unknown HPI HPI COPD: Details: Miladys is a pleasant 57 year old female, current smoker, with 35+ pack year history, with underlying COPD and hypertension. At the last visit, she was prescribed prednisone and reports feeling symptoms are moderately controlled on albuterol PRN. We had previously discussed a daily inhaler however she declined. She continues to report intermittent productive cough with clear to white sputum and occasional wheezing. She is in the lung cancer screening program and her last chest CT was in December 2022 with a lung rads 1 reading, with an upcoming CT to be scheduled in December. She is currently smoking about a pack a day, has nicotine patches at home and is interested in smoking cessation, but has yet to trial. [facility] Medical History Dysplasia of cervix, low grade (MATILDA 1) COPD (chronic obstructive pulmonary disease) High cholesterol Hypertension Personal history of nicotine dependence Hearing loss in right ear Tinnitus of right ear Surgical History Hx of colonoscopy Status post LEEP (loop electrosurgical excision procedure) of cervix History of tonsillectomy Family History Father Smoker CHF (congestive heart failure) Mother Non Hodgkin's lymphoma Pacemaker Lung cancer Paternal Grandmother History of breast cancer Social History Housing: House Alcohol intake: current Alcohol intake frequency: a few times a week Alcohol type: hard liquor Patient Tobacco Use Status: Current everyday Tobacco user Tobacco use type: Cigarette Cigarette Packs Per Day: 1 Cigarettes Per Day: 20 Years Smoked: (onset 15yo, 1ppd x 40yrs, 40pyh) e-Cigarette/Vaping Use: Never Used Second Hand Smoke Exposure: Yes service: No Current occupational status: unemployed Sexual orientation: Straight/Heterosexual Gender identity: Female Cognitive needs: No Hearing needs: Yes (hearing aide Right Ear) Vision needs: Yes (glasses) Female Reproductive History Menstrual Age of Menarche: 10 Review of Systems Const Denies chills, Denies excessive sweating, Denies fever(s), Denies headache(s) and Denies night sweats Eyes Denies dry eyes, Denies irritation and Denies itchy eyes ENT Reports Normal hearing present, Denies headache(s), Denies nasal congestion, Denies nasal discharge, Denies post nasal drip and Denies sore throat Card Denies chest pain, Denies chest pain at rest, Denies chest pain with activity, Denies claudication, Denies leg edema, Denies orthopnea and Denies paroxysmal nocturnal dyspnea Resp Denies chest congestion, Denies excessive phlegm production, Denies pain on inspiration, Denies pain with cough and Denies stridor Musc Denies myalgias Neuro Reports Normal hearing present and Denies headache(s) Endo Denies excessive sweating Carlos/Lymph Denies lymphadenopathy Aller/Immun Denies itchy eyes and Denies seasonal rhinorrhea Physical Exam Vital Signs: Last Vital Signs Pulse 101 H 09/22/23 10:34 BP 114/62 09/22/23 10:34 Pulse Ox 96 09/22/23 10:34 Oxygen Delivery Method Room Air 09/22/23 10:34 BMI result Body Mass Index 24.8 Const General: cooperative, healthy appearing, comfortable, no acute distress, well developed and alert Orientation/consciousness: patient oriented x3 Limitations: no limitations HEENT Head: Yes normal to inspection, Yes normocephalic and Yes atraumatic Ears: hearing grossly normal bilaterally and external ears normal Eyes General: appearance normal, both eyes and all related structures Eyelids: Yes eyelids normal Sclerae: sclerae normal EOM: EOMs intact bilaterally Neck Neck: Yes normal visual inspection and Yes no lymphadenopathy Lymphatic: no lymphadenopathy noted Chest Chest palpation & inspection: normal inspection of the chest Resp Other: Expiratory wheezing throughout with diminished lung sounds Effort & Inspection: able to speak in complete sentences, no audible wheezes, no cough, no stridor, not tachypneic, no tripod positioning and no use of accessory muscles Cardio Jugular venous distension: no JVD Rhythm: regular rhythm Skin Other: warm, dry General skin exam: no rashes or lesions noted Neuro General: patient oriented x3 Cranial nerves: Yes Normal hearing present Cognition (Neuro): normal cognition Gait exam (Neuro): Normal gait present Extrem General: Yes normal to inspection, Yes capillary refill normal, Yes no clubbing, cyanosis or edema and Yes no pedal edema Psych Appearance: grossly normal and well kempt Speech and movement: Normal speech and movement present and Clear speech present Affect: normal affect Attitude: cooperative Thought process: Normal thought process present Thought content: Normal thought content present Insight: Good insight present (Psych) Judgement: Good judgement present (Psych) Office Procedures Nebulizer Treatment Nebulizer Treatment 65137-Xapdivrqd/MDI RX initial, or Nebulizer Subsequent Treatment Office Meds ipratropium 0.5 mg-albuterol 3 mg (2.5 mg base)/3 mL nebulization soln Performing Provider: Haily Singletary NP Performing Location[place] [facility] Administered by: Chelle Mckinney LPN on 09/22/23 10:30 Dose Route Admin Location Dispensed Lot Number Expiration Date [facility] [employer] Supervisor 3 mL inhalation 3 mL [id number] 06/09/25 53852-688-31 P Assessment & Plan Assessment & Plan (1) COPD (chronic obstructive pulmonary disease): Code(s): J44.9 - Chronic obstructive pulmonary disease, unspecified Category: Medical (2) Personal history of nicotine dependence: Comment: (onset 15yo, 1ppd x 40yrs, 40pyh Code(s): Z87.891 - Personal history of nicotine dependence Category: Medical Plan On exam patient with moderate expiratory wheezes throughout, minimally improved with duoneb. Will send prednisone. Again discussed a daily inhaler but patient declines at this time. She is agreeable to a nebulizer, will send this as well as Duoneb to use BID. Patient is a part of the lung cancer screening program, last chest CT was read as a lung RADS 1. She has some upcoming chest CT due in December 2023. Disussed smoking cessation and offered referral to community navigator however patient declined and will attempt on her own. All questions were answered and patient is in agreement of plan. Will follow-up in 2-3 months or sooner if needed. Orders: Orders AMB Nebulizer Treatment 09/22/23 J44.9 - Chronic obstructive pulmonary disease, unspecified Medications: New prednisone 40 mg (2 x 20 mg) PO DAILY 10 tabs 0RF ipratropium-albuterol 0.5 mg-3 mg(2.5 mg base)/3 mL 3 mL inhalation Q6H PRN 180 mL 3RF wheezing Coding Level of Care Code Est Pt Level 4 (90156) Diagnoses COPD (chronic obstructive pulmonary disease) J44.9 Personal history of nicotine dependence Z87.891 CPT Codes Nebulizer Treatment - Nebulizer Treatment, initial or subsequent: 28979- Nebulizer/MDI RX initial, or Nebulizer Subsequent Treatment ([id number])
== END 2023-09-22 11:20 | disposition home or self-care (01) ==
PROVIDERS: PCP Internal Medicine; Visit Provider Nurse Practitioner Family
DX: J44.9 Chronic obstructive pulmonary disease, unspecified (principal); Z87.891 Personal history of nicotine dependence
CPT/HCPCS: 99214

== ENCOUNTER → 2023-09-22 10:22 | Outpatient (BNVA) | payer OTHER, SELFPAY | PROVIDERS: PCP Internal Medicine; Visit Provider Nurse Practitioner Family | DX: J44.9 Chronic obstructive pulmonary disease, unspecified (principal); Z87.891 Personal history of nicotine dependence | CPT/HCPCS: 94640 ==

== ENCOUNTER 2023-12-09 16:34 | Outpatient (AMB) | payer OTHER, SELFPAY ==
--- NOTE | 2023-12-09 16:39 | A.OFFPC_ITS ---
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 Accompanied by: Self / Same As Patient Allergies Penicillin Allergy (Unknown, Uncoded 12/09/23 16:46) Unknown Medication List - Last Reconciled 12/09/23 by Sabine Bledsoe MD albuterol sulfate 90 mcg/actuation (Ventolin HFA) 2 puffs inhalation Q4-6H PRN blood pressure monitor As directed clotrimazole-betamethasone 1-0.05 % 1 appl topical BID 2 weeks hydroxyzine HCl 25 mg PO BID PRN 30 days ipratropium-albuterol 0.5 mg-3 mg(2.5 mg base)/3 mL 3 mL inhalation Q6H PRN lisinopril 10 mg PO DAILY 90 days nicotine 1 patch transdermal Q24H 14 days Tobacco use date assessed: 05/29/23 Dental Screening Dental Screen Date: 05/29/23 HPI HPI Comments History of Present Illness Details This is a 58-year-old female with COPD that comes for her physical exam. She was advised to quit smoking. Had CT lung cancer screening last year and has an appointment for this year. Mammogram done less than a year ago and was normal. Pap smear done 2023. Colonoscopy done 2022 which was normal and next colonoscopy will be 2032. Patient declined DEXA scan. COPD stable. [facility] Medical History Hypertension High cholesterol COPD (chronic obstructive pulmonary disease) Nicotine dependence, cigarettes, uncomplicated Dysplasia of cervix, low grade (MATILDA 1) Hearing loss in right ear Tinnitus of right ear Surgical History Hx of colonoscopy Status post LEEP (loop electrosurgical excision procedure) of cervix History of tonsillectomy Family History Father Smoker CHF (congestive heart failure) Mother Non Hodgkin's lymphoma Pacemaker Lung cancer Paternal Grandmother History of breast cancer Social History (Updated 12/09/23 @ 18:30 by Sabine Bledsoe MD) Housing: House Alcohol intake: current Alcohol intake frequency: 0-2 drinks per day Alcohol type: hard liquor Patient Tobacco Use Status: Current everyday Tobacco user Tobacco use type: Cigarette Cigarette Packs Per Day: 1 Cigarettes Per Day: 20 Years Smoked: (onset 15yo, 1ppd x 40yrs, 40pyh) e-Cigarette/Vaping Use: Never Used Second Hand Smoke Exposure: Yes service: No Current occupational status: unemployed Sexual orientation: Straight/Heterosexual Gender identity: Female Cognitive needs: No Hearing needs: Yes (hearing aide Right Ear) Vision needs: Yes (glasses) Female Reproductive History Menstrual Age of Menarche: 10 Questionnaire PHQ-9 Over the last 2 weeks, how often have you been bothered by any of the following problems? 1. Little interest or pleasure in doing things: several days 2. Feeling down, depressed, or hopeless: not at all 3. Trouble falling or staying asleep, or sleeping too much: several days 4. Feeling tired or having little energy: several days 5. Poor appetite or overeating: several days 6. Feeling bad about yourself - or that you are a failure or have let yourself or your family down: several days 7. Trouble concentrating on things, such as reading the newspaper or watching television: not at all 8. Moving or speaking so slowly that other people could have noticed. Or the opposite - being so fidgety or restless that you have been moving around a lot more than usual: not at all 9. Thoughts that you would be better off or of hurting yourself in some way: not at all Total score: 5 Depression Screening Interpretation: Positive Depression Screening Follow-up: Existing condition and Follow-up Visit Requested Depression Screening Done: Yes 59167 - PHQ-9 Billing: Yes Source: Developed by Drs. Jt Harris, Miley Diop, Wei Christine and colleagues, with an educational josefina from [employer]. Thrive Questionnaire Date Thrive assessed: 12/09/23 I am a: Patient What is your living situation today?: I have a steady place to live Within the past 12 months, did the food you bought not last and you didn't have the money to get more?: Sometimes True Within the past 12 months, did you worry whether your food would run out before you got money to buy more?: Sometimes True Do you have trouble paying for medicines?: No Do you have trouble getting transportation to medical appointments?: Yes Do you have trouble paying your heating and electricity bill?: Yes Do you have trouble taking care of your child, family member or friend?: No Do you have trouble with day-to-day activities such as bathing, preparing meals, shopping, managing finances, etc.?: No Are you currently unemployed and looking for a job?: I choose not to answer this question Are you interested in more education?: No Please select the resources that you would like help with: Utilities Currently or been in a relationship where the following occur: No concerns reported THRIVE Score: 4 AUDIT C Alcohol Use Questionnaire (AUDIT-C) 1. How often do you have a drink containing alcohol?: 4 or more times a week 2. How many drinks containing alcohol do you have on a typical day when you are drinking?: 1 or 2 3. How often do you have six or more drinks on one occasion?: Never Total Score: 4 Score Reviewed/Action Taken: Yes (Advised to not drink alcohol every day.) HOLLY-7 AMB Questionnaire HOLLY-7 Date HOLLY - 7 assessed: 12/09/23 Feeling nervous, anxious, or on edge: 2 = More than half the days Not being able to stop or control worryin = More than half the days Worrying too much about different things: 2 = More than half the days Trouble relaxin = More than half the days Being so restless that it is hard to sit still: 2 = More than half the days Becoming easily annoyed or irritable: 3 = Nearly every day Feeling afraid as if something awful might happen: 2 = More than half the days Total HOLLY-7 score (0-4 normal; 5-9 mild; 10-14 moderate; 15-21 severe): 15 Source: Developed by Drs. Jt Harris, Miley Diop, Wei Christine and colleagues, with an educational josefina from [employer]. HOLLY-7 Assessment Billing HOLLY-7 Assessment Tool: HOLLY-7 Assessment 88210 Review of Systems Const All systems reviewed & are unremarkable except as noted in HPI and below Card Denies chest pain at rest, Denies chest pain with activity, Denies edema, Denies irregular heart rhythm, Denies claudication, Denies dyspnea, Denies dyspnea on exertion, Denies orthopnea, Denies paroxysmal nocturnal dyspnea and Denies slow heart rate Resp Denies cough, Denies dyspnea and Denies dyspnea on exertion GI Denies abdominal pain, Denies change in bowel habits, Denies excessive flatus, Denies nausea and Denies vomiting Denies urinary incontinence, Denies urinary hesitancy and Denies urinary urgency Musc Denies abnormal gait, Denies atrophy, Denies deformity and Denies limited range of motion Neuro Denies abnormal gait, Denies behavioral changes and Denies lack of coordination Psych Denies behavioral changes Physical exam (Primary Care) Vital Signs: Last Vital Signs BP 136/82 12/09/23 16:40 BMI result Body Mass Index 25.1 Tobacco/Smoking Status: Tobacco use Status Tobacco use date assessed 05/29/23 12/09/23 16:42 Patient Tobacco Use Status Current everyday Tobacco 12/09/23 16:42 Tobacco use type Cigarette 12/09/23 16:42 e-Cigarette/Vaping Use Never Used 12/09/23 16:42 Are you ready to quit: No Tobacco cessation counseling provided: Yes Items discussed: Nicotine replacement and QuitWorks Relapse Prevention: discussed the importance of a supportive environment, discussed extending NRT, discussed negative mood or depression after quitting, weight gain after smoking is common and discussed dietary, exercise and/or lifestyle changes Number of minutes spent counselin PHQ-9: PHQ-9 Score PHQ-9: Total score 5 12/09/23 16:47 Depression Screening Interpretation: Positive Depression Screening Follow-up: Existing condition and Follow-up Visit Requested Thrive Assessment: Date of Thrive Assessment Date Thrive assessed 12/09/23 12/09/23 16:47 Currently or been in a relationship where the following occur: No concerns reported [facility] Head: Yes normal to inspection, Yes normocephalic and Yes atraumatic Ears: external ears normal Eyes General: appearance normal, both eyes and all related structures Eyelids: Yes eyelids normal Conjunctivae: conjunctivae normal Neck Neck: Yes normal visual inspection and Yes supple Resp Auscultation: rhonchi Cardio Jugular venous distension: no JVD Rate: regular rate Rhythm: regular rhythm Heart sounds: S1 normal heart sound present and S2 normal heart sound present GI Inspection: Yes normal to inspection Palpation (GI): Soft to palpation and nontender Auscultation: normal bowel sounds Skin General skin exam: no rashes or lesions noted Neuro General: no focal motor deficits Extrem General: Yes full ROM Psych Appearance: grossly normal Office Procedures Flu Questionnaire Does the patient have a severe egg allergy?: No Immunizations Fluarix Triv [id number] (PF) 45 mcg (15 mcg x 3)/0.5 mL IM syringe Performing Provider: Sabine Bledsoe MD [facility] [place] Documented (not given) by: JOSE Ramos on 12/09/23 16:48 Reason Not Given: Patient Refused Coding Level of Care Code Est Pt Prev Care 40-64y(76318) Diagnoses Physical exam Z00.00 COPD (chronic obstructive pulmonary disease) J44.9 Additional Codes HOLLY-7 Assessment Billing - HOLLY-7 Assessment Tool: HOLLY-7 Assessment 50122 ([id number]) Time Spent (min) 30 Assessment & Plan Assessment & Plan (1) Physical exam: Code(s): Z00.00 - Encounter for general adult medical examination without abnormal findings Category: Medical Plan: Repeat in a year. (2) COPD (chronic obstructive pulmonary disease): Code(s): J44.9 - Chronic obstructive pulmonary disease, unspecified Category: Medical Plan: Use rescue inhaler as needed. Orders: Orders Influenza [id number] Immunization Today Z23 - Encounter for immunization Comprehensive [place]. Panel Fast Today Z00.00 - Encounter for general adult medical examination without abnormal findings Lipid Panel Today Z00.00 - Encounter for general adult medical examination without abnormal findings
[2023-12-09 16:40] VITALS: BP 136/82; BMI 25.1
== END 2023-12-09 17:07 | disposition home or self-care (01) ==
LOC: HO.HMCH 16:35
PROVIDERS: PCP Internal Medicine; Visit Provider Internal Medicine
DX: Z00.00 Encounter for general adult medical examination without abnormal findings (principal); J44.9 Chronic obstructive pulmonary disease, unspecified; Z23 Encounter for immunization

== ENCOUNTER → 2023-12-09 16:34 | Outpatient (BNVA) | payer OTHER, SELFPAY | PROVIDERS: PCP Internal Medicine; Visit Provider Internal Medicine | DX: Z00.00 Encounter for general adult medical examination without abnormal findings (principal); J44.9 Chronic obstructive pulmonary disease, unspecified; Z28.21 Immunization not carried out because of patient refusal | CPT/HCPCS: 90471; 96127 ==

== ENCOUNTER 2023-12-16 06:55 | Outpatient (REF) | payer OTHER, SELFPAY ==
[2023-12-16 08:29] LABS: Alanine Aminotransferase 15 U/L (0-31); Albumin Level 4.3 g/dL (3.5-5.0); Alkaline Phosphatase 88 U/L (39-117); Anion Gap 16 (12-20); Aspartate Amino Transferase 24 U/L (5-31); Bilirubin Total 0.8 mg/dL (0.0-1.0); Blood Urea Nitrogen 12 mg/dL (9-16); Calcium 10.3 mg/dL (8.4-10.2); Carbon Dioxide 26 mmol/L (22-29); Chloride 102 mmol/L (96-108); Cholesterol 222 mg/dL (<200); Estimated Glomerular Filt Rate > 60; Glucose Fasting 105 mg/dL (60-99); HDL Cholesterol 69 mg/dL (>40); LDL Cholesterol Calculated 123 mg/dL (<100); Potassium 4.4 mmol/L (3.3-5.1); Sodium 140 mmol/L (135-145); Total Protein 7.5 g/dL (6.5-8.0); Triglycerides 150 mg/dL (<150)
== END 2023-12-16 06:56 | disposition home or self-care (01) ==
LOC: HO.LAB 06:55
PROVIDERS: PCP Internal Medicine; Visit Provider Internal Medicine
DX: I10 Essential (primary) hypertension (principal)
CPT/HCPCS: 36415; 80053; 80061

== ENCOUNTER 2024-01-05 10:21 | Outpatient (AMB) | payer OTHER, SELFPAY ==
--- NOTE | 2024-01-05 10:49 | MHC.OFFVIS ---
Vital Signs 01/05/24 10:50 Height 5 ft 8 in Weight 165 lb 5.547 oz BMI 25.1 BP 144/80 H Blood Pressure Location Lt brachial Position Sitting Pulse 85 Pulse Source Pulse Oximeter Pulse Oximetry (%) 97 Oxygen Delivery Method Room Air Intake Visit Reasons: COPD Allergies Penicillin Allergy (Unknown, Uncoded 01/05/24 10:54) Unknown HPI HPI COPD: Details: Miladys is a pleasant 58 year old female, current smoker, with 35+ pack year history, with underlying COPD and hypertension. She has been suboptimally controlled on duoneb and albuterol MDI, previously prescribed Advair however not financially feasible. She continues to report intermittent productive cough with clear to white sputum, dyspnea on exertion and occasional wheezing. She is in the lung cancer screening program and her last chest CT was in December 2022 with a lung rads 1 reading, with an upcoming CT scheduled next week. She is currently smoking about a pack a day, has nicotine patches at home and is interested in smoking cessation, but has yet to trial. She again notes plan to quit smoking this week. She denies any visits to urgent care or hospitalizations related to respiratory distress since the last visit. [facility] Medical History Hypertension High cholesterol COPD (chronic obstructive pulmonary disease) Nicotine dependence, cigarettes, uncomplicated Dysplasia of cervix, low grade (MATILDA 1) Hearing loss in right ear Tinnitus of right ear Surgical History Hx of colonoscopy Status post LEEP (loop electrosurgical excision procedure) of cervix History of tonsillectomy Family History Father Smoker CHF (congestive heart failure) Mother Non Hodgkin's lymphoma Pacemaker Lung cancer Paternal Grandmother History of breast cancer Social History Housing: House Alcohol intake: current Alcohol intake frequency: 0-2 drinks per day Alcohol type: hard liquor Patient Tobacco Use Status: Current everyday Tobacco user Tobacco use type: Cigarette Cigarette Packs Per Day: 1 Cigarettes Per Day: 20 Years Smoked: (onset 15yo, 1ppd x 40yrs, 40pyh) e-Cigarette/Vaping Use: Never Used Second Hand Smoke Exposure: Yes service: No Current occupational status: unemployed Sexual orientation: Straight/Heterosexual Gender identity: Female Cognitive needs: No Hearing needs: Yes (hearing aide Right Ear) Vision needs: Yes (glasses) Female Reproductive History Menstrual Age of Menarche: 10 Review of Systems Const Denies chills, Denies excessive sweating, Denies fever(s), Denies headache(s) and Denies night sweats Eyes Denies dry eyes, Denies irritation and Denies itchy eyes ENT Reports Normal hearing present, Denies headache(s), Denies nasal congestion, Denies nasal discharge, Denies post nasal drip and Denies sore throat Card Denies chest pain, Denies chest pain at rest, Denies chest pain with activity, Denies claudication, Denies leg edema, Reports dyspnea on exertion, Denies orthopnea and Denies paroxysmal nocturnal dyspnea Resp Denies change in phlegm color, Denies chest congestion, Reports cough, Denies excessive phlegm production, Denies pain on inspiration, Denies pain with cough, Reports dyspnea on exertion, Denies stridor and Reports wheezing Musc Denies myalgias Neuro Reports Normal hearing present and Denies headache(s) Endo Denies excessive sweating Carlos/Lymph Denies lymphadenopathy Aller/Immun Denies itchy eyes, Denies seasonal rhinorrhea and Reports wheezing Physical Exam Vital Signs: Last Vital Signs Pulse 85 01/05/24 10:50 BP 144/80 H 01/05/24 10:50 Pulse Ox 97 01/05/24 10:50 Oxygen Delivery Method Room Air 01/05/24 10:50 BMI result Body Mass Index 25.1 Const General: cooperative, healthy appearing, comfortable, no acute distress, well developed and alert Orientation/consciousness: patient oriented x3 Limitations: no limitations HEENT Head: Yes normal to inspection, Yes normocephalic and Yes atraumatic Ears: hearing grossly normal bilaterally and external ears normal Eyes General: appearance normal, both eyes and all related structures Eyelids: Yes eyelids normal Sclerae: sclerae normal EOM: EOMs intact bilaterally Neck Neck: Yes normal visual inspection and Yes no lymphadenopathy Lymphatic: no lymphadenopathy noted Chest Chest palpation & inspection: normal inspection of the chest Resp Effort & Inspection: able to speak in complete sentences, no audible wheezes, no cough, no stridor, not tachypneic, no tripod positioning, no use of accessory muscles and prolonged expiratory phase Auscultation: diminished lung sounds Cardio Jugular venous distension: no JVD Rhythm: regular rhythm Skin Other: warm, dry General skin exam: no rashes or lesions noted Neuro General: patient oriented x3 Cranial nerves: Yes Normal hearing present Cognition (Neuro): normal cognition Gait exam (Neuro): Normal gait present Extrem General: Yes normal to inspection, Yes capillary refill normal, Yes no clubbing, cyanosis or edema and Yes no pedal edema Psych Appearance: grossly normal and well kempt Speech and movement: Normal speech and movement present and Clear speech present Affect: normal affect Attitude: cooperative Thought process: Normal thought process present Thought content: Normal thought content present Insight: Good insight present (Psych) Judgement: Good judgement present (Psych) Assessment & Plan Assessment & Plan (1) COPD (chronic obstructive pulmonary disease): Code(s): J44.9 - Chronic obstructive pulmonary disease, unspecified Category: Medical (2) Personal history of nicotine dependence: Comment: (onset 15yo, 1ppd x 40yrs, 40pyh Code(s): Z87.891 - Personal history of nicotine dependence Category: Medical Plan Patient with suboptimal control on current regimen, will trial Wixela. She is aware to call if inhaler is not financially feasible. Smoking cessation reviewed and patient is motivated to attempt with NRT at home. Patient is a part of the lung cancer screening program, last chest CT was read as a lung RADS 1. She has an upcoming chest CT scheduled 01/2024. All questions were answered and patient is in agreement of plan. Will follow-up in 6-8 weeks or sooner if needed. Medications: New fluticasone propion-salmeterol 250-50 mcg/dose (Wixela Inhub) 1 inh inhalation Q12H 60 ea 6RF Coding Level of Care Code Est Pt Level 4 (75465) Diagnoses COPD (chronic obstructive pulmonary disease) J44.9 Personal history of nicotine dependence Z87.891
[2024-01-05 10:50] VITALS: BP 144/80; PULSE 85; O2SAT 97; BMI 25.1
== END 2024-01-05 11:14 | disposition home or self-care (01) ==
PROVIDERS: PCP Internal Medicine; Visit Provider Nurse Practitioner Family
DX: J44.9 Chronic obstructive pulmonary disease, unspecified (principal); Z87.891 Personal history of nicotine dependence
CPT/HCPCS: 99214

== ENCOUNTER → 2024-01-05 10:21 | Outpatient (BNVA) | payer OTHER, SELFPAY | PROVIDERS: PCP Internal Medicine; Visit Provider Nurse Practitioner Family ==

== ENCOUNTER 2024-01-12 14:51 | Outpatient (REF) | payer OTHER, SELFPAY | END 2024-01-12 14:52 | disposition home or self-care (01) | LOC: HO.CT 14:51 | PROVIDERS: PCP Internal Medicine; Visit Provider Physician Assistant Medical | DX: Z12.2 Encounter for screening for malignant neoplasm of respiratory organs (principal); F17.210 Nicotine dependence, cigarettes, uncomplicated | CPT/HCPCS: 71271 ==

== ENCOUNTER → 2024-01-12 14:52 | Outpatient (BNV) | payer OTHER, SELFPAY | PROVIDERS: PCP Internal Medicine; Visit Provider Radiology Diagnostic Radiology | DX: R91.1 Solitary pulmonary nodule (principal); J43.2 Centrilobular emphysema | CPT/HCPCS: 71271 ==

== ENCOUNTER 2024-06-09 09:23 | Outpatient (AMB) | payer OTHER, SELFPAY ==
--- NOTE | 2024-06-09 09:25 | MHC.OFFVIS ---
Vital Signs 06/09/24 09:26 06/09/24 10:06 Height 5 ft 8 in Weight 165 lb BMI 25.1 BP 110/70 Blood Pressure Location Lt brachial Position Sitting Pulse 120 H 107 H Pulse Oximetry (%) 94 97 Oxygen Delivery Method Room Air Room Air Intake Visit Reasons: Melena with blood Intake Note: Patient complex follow up for Melena with rectal bleeding. Stephany bauer 11/08/21 and last Colonoscopy by Dr. Bill on 07/30/2022 with 10 yrs recall. Patient denies any GI issues for today , Melena, abdominal pain and rectal bleeding for one date patient is taking Iron. Marketing Planner Required: No Accompanied by: Self / Same As Patient Allergies Penicillin Allergy (Unknown, Uncoded 01/05/24 10:54) Unknown Medication List - Last Reconciled 06/09/24 by Anya Huizar CNP albuterol sulfate 90 mcg/actuation (Ventolin HFA) 2 puffs inhalation Q4-6H PRN atorvastatin 20 mg PO BEDTIME 90 days blood pressure monitor As directed clotrimazole-betamethasone 1-0.05 % 1 appl topical BID 2 weeks fluticasone propion-salmeterol 250-50 mcg/dose (Wixela Inhub) 1 inh inhalation Q12H hydroxyzine HCl 25 mg PO DAILY PRN 30 days ipratropium-albuterol 0.5 mg-3 mg(2.5 mg base)/3 mL 3 mL inhalation Q6H PRN lisinopril 10 mg PO DAILY 90 days nicotine 1 patch transdermal Q24H 14 days HPI HPI Melena with blood: Details: Patient is a 58-year-old female with PMH of nicotine dependence, COPD, hyperlipidemia, hypertension and hearing loss. Last visit with JACIEL Garibay 11/08/2021 for colonoscopy screening Pt is here today for further evaluation for blood in stools. Patient reports an episode of bright red rectal bleeding associated with multiple episodes of loose stools over the course of a single day last week. She experienced lower abdominal cramping/discomfort during this episode. The following day, after taking an iron supplement (in response to the bleeding), she noted that her stool appeared dark red. She denies any recurrent bleeding since then. Bowel movements have since returned to baseline, described as type 2 on the [place] Stool Chart. She denies change in frequency, caliber, or consistency of stools Patient denies: fever/chills, dizziness, cardiac symptoms, new pulmonary symptoms, n/v, appetite changes, pyrosis, regurgitation, dysphasia, unintentional wt loss, ab pain, feeling of incomplete evacuations or straining She reports that her mother has celiac disease and expresses interest in being tested. Social hx: 8 beers/week denies recreational drug use current smoker, 1ppd -family hx as below -denies personal hx of CA PFSH Medical History Hypertension High cholesterol COPD (chronic obstructive pulmonary disease) Nicotine dependence, cigarettes, uncomplicated Dysplasia of cervix, low grade (MATILDA 1) Hearing loss in right ear Tinnitus of right ear Surgical History Hx of colonoscopy Status post LEEP (loop electrosurgical excision procedure) of cervix History of tonsillectomy Family History (Updated 06/09/24 @ 12:51 by Anya Huizar CNP) Father Smoker CHF (congestive heart failure) Mother Non Hodgkin's lymphoma Pacemaker Lung cancer Celiac disease Paternal Grandmother History of breast cancer Social History Housing: House Alcohol intake: current Alcohol intake frequency: 0-2 drinks per day Alcohol type: hard liquor Patient Tobacco Use Status: Current everyday Tobacco user Tobacco use type: Cigarette Cigarette Packs Per Day: 1 Cigarettes Per Day: 20 Years Smoked: (onset 15yo, 1ppd x 40yrs, 40pyh) e-Cigarette/Vaping Use: Never Used Second Hand Smoke Exposure: Yes service: No Current occupational status: unemployed Sexual orientation: Straight/Heterosexual Gender identity: Female Cognitive needs: No Hearing needs: Yes (hearing aide Right Ear) Vision needs: Yes (glasses) Female Reproductive History Menstrual Age of Menarche: 10 Review of Systems Const Reports as per HPI ENT Reports as per HPI Card Reports as per HPI Resp Reports as per HPI GI Reports as per HPI Reports as per HPI Physical Exam Vital Signs: Last Vital Signs Pulse 120 H 06/09/24 09:26 BP 110/70 06/09/24 09:26 Pulse Ox 94 06/09/24 09:26 Oxygen Delivery Method Room Air 06/09/24 09:26 BMI result Body Mass Index 25.1 Const General: healthy appearing, no acute distress and well developed Nutritional Appearance: well nourished Orientation/consciousness: patient oriented x3 HEENT Head: Yes normal to inspection, Yes normocephalic and Yes atraumatic Face and sinus: Yes normal facial exam Eyes General: appearance normal, both eyes and all related structures Neck Neck: Yes normal visual inspection Resp Effort & Inspection: normal respiratory effort, able to speak in complete sentences, no tracheal deviation and symmetric chest movement Auscultation: wheezes inspiratory wheezes Cardio Jugular venous distension: no JVD Rate: regular rate and tachycardic Rhythm: regular rhythm Heart sounds: S1 normal heart sound present, S2 normal heart sound present, no gallops and no murmurs GI Inspection: Yes normal to inspection and No distended Palpation (GI): Soft to palpation, not firm, nontender and No hepatosplenomegaly present Auscultation: normal bowel sounds Neuro General: patient oriented x3 Gait exam (Neuro): Normal gait present Psych Appearance: grossly normal Mental Status: mental status grossly normal Speech and movement: Normal speech and movement present Affect: Anxious affect present Attitude: cooperative Thought process: Normal thought process present Thought content: Normal thought content present Insight: Good insight present (Psych) Judgement: Good judgement present (Psych) Results Reviewed Results Reviewed: Date of Service: 07/30/22 Procedure Description: Colonoscopy Indication: screening COLONOSCOPY Procedure: The patient was placed in the left lateral decubitis position and pre-procedure medications were administered. After a digital rectal examination of the ano-rectum, the video colonoscope was inserted into the rectum and advanced through the colon to the cecum/TI. The colonoscope was slowly withdrawn in a retrograde panoramic fashion and the colon mucosa was carefully examined including a retroflexed view of the rectum. Findings and interventions are described below. Procedure Difficulty: moderate Findings: Terminal Ileum-normal Cecum:normal Ascending Colon: normal Transverse Colon -normal Descending Colon:normal Sigmoid Colon: moderate severe diverticulosis Rectum: Retroflexion with medium sized internal hemorrhoids, grade I Anorectum - normal Colon preparation: [place] Bowel Preparation Scale Right colon; 2 Transverse colon: 2 Left colon; 2 Impression and Post Procedure Diagnosis: internal hemorrhoids diverticular disease Plan: High fiber diet leaflet Avoid straining at stool, epsom salts and sitz bath, anusol supps or cream Repeat Colonoscopy in 10 years or earlier if clinically indicated Assessment & Plan Assessment & Plan (1) Bloody stools: Code(s): K92.1 - Melena Category: Medical Plan: Two day episode last week. Slightly tachycardic on exam, otherwise VSS. Last colonoscopy 2022 with findings of internal hemorrhoids and diverticulosis to the sigmoid colon. Recommendations for repeat in 10 years. Cervical cancer screening 2023 with evidence of Dysplasia of cervix, low grade (MATILDA 1). She is established with [facility] and will have annual screening. She will likely need endoscopic procedure for further evaluation. We will start with labs and CT abdomen/pelvis for further evaluation of any diverticular bleed VS IBD VS [facility] etiologies. Call and portal message out to patient, updating on plan for CT scan. (2) COPD (chronic obstructive pulmonary disease): Code(s): J44.9 - Chronic obstructive pulmonary disease, unspecified Category: Medical Qualifiers: COPD type: unspecified COPD Qualified Code(s): J44.9 - Chronic obstructive pulmonary disease, unspecified Plan: Instructed to use inhaler/nebulizer upon return home to help with management of wheezing noted on exam. Establish with pulmonology Plan Follow-up in 2 weeks or sooner as needed Time: I spent a total of 60 minutes on the date of encounter which includes: Preparing to see the patient (reviewed previous documentation, test results and medical history) Performing a medically appropriate exam and/or evaluation Ordering medications, tests, and procedures Documenting clinical information in the health record Orders: Orders Complete Blood Count no Diff Today K92.1 - Melena IRON PROFILE Today K92.1 - Melena Ferritin Today D64.9 - Anemia, unspecified Prothrombin Time INR Today K92.1 - Melena C Reactive Protein Today K92.1 - Melena CT abdomen pelvis w IV con Today K92.1 - Melena Comprehensive Met. Panel Today K92.1 - Melena Transglutaminase IgA Today Z83.79 - Family history of other diseases of the digestive system Calprotectin, Fecal Today K92.1 - Melena Medications: New barium sulfate 2%(w/v) (Readi-Cat 2) 2 hours before your appointment drink the 1st Bottle (450 ml) of the READI-CAT 2, 1 hour before your appointment drink the 2nd bottle (450 ml) of the READI-CAT 2 900 mL 0RF Coding Level of Care Code New Pt New Pt Level 5 (56646) Patient Type New Diagnoses Bloody stools K92.1 Chronic obstructive pulmonary disease, unspecified COPD type J44.9 COPD type: unspecified COPD
[2024-06-09 09:26] VITALS: BP 110/70; PULSE 120; O2SAT 94; BMI 25.1
--- OUTSIDE RECORDS SUMMARY | 2024-06-09 10:03 | XMS_ITS | Data Portability ---
Author Organization [place] - [facility], Allergy Address [address] [address] Assessment Encounter Date Assessment Date Assessment LastModified by Organization Details LastModified Time 08/28/2023 08/28/2023 CL & CK - aid working fine. Not having as much issue with tinnitus recently seems to have habituated to it now. 6 mo appt made [email or web address] Not available 08/28/2023 14:23:48 05/27/2024 05/27/2024 Patient dropped off right aid. retention O-ring broke off and wax guards jammed into envelope cutter tube - will send for in warranty repair. call for PU when back from repair [email or web address] Not available 05/27/2024 16:16:56 Plan of Treatment Reminders Order Date Submit Date Provider Last Modified By Organization Details Last Modified Time Details Appointments None record ed. Lab None record ed. Referral None record ed. Procedures None record ed. Surgeries None record ed. Imaging None record ed. Medication Orders None record ed. Patient TargetsNo targets recorded. Patient InstructionsNo instructions recorded. Reason for Referral None Reported. Results Created Date Observation Date Name Description Value Unit Range Abnormal Flag Note LastModifiedBy Organization Detail LastModifiedTime 10/02/19 24 05/18/2021 imagi ng/di agnos tic resul t No observ ation record ed. [email or web address] Not Available 20:09:31 10/02/19 24 06/07/2021 imagi ng/di agnos tic resul t No observ ation record ed. [email or web address] Not Available 20:09:41 10/02/19 24 06/18/2021 imagi ng/di agnos tic resul t No observ ation record ed. [email or web address] Not Available 20:09:44 10/02/19 24 07/13/2021 imagi ng/di agnos tic resul t No observ ation record ed. [email or web address] Not Available 20:09:49 10/02/19 24 07/13/2021 imagi ng/di agnos tic resul t No observ ation record ed. [email or web address] Not Available 20:09:53 10/02/19 24 02/20/2023 audio gram No observ ation record ed. [email or web address] Not Available 20:10:08 10/02/19 24 02/21/2022 audio gram No observ ation record ed. [email or web address] Not Available 20:10:11 10/02/19 24 07/16/2021 audio gram No observ ation record ed. [email or web address] Not Available 20:10:49 10/02/19 24 07/25/2022 audio gram No observ ation record ed. [email or web address] Not Available 20:10:50 10/02/19 24 08/09/2021 audio gram No observ ation record ed. [email or web address] Not Available 20:10:52 10/02/19 24 08/19/2022 audio gram No observ ation record ed. [email or web address] Not Available 20:10:54 10/02/19 24 08/23/2021 audio gram No observ ation record ed. [email or web address] Not Available 20:10:57 10/02/19 24 09/06/2021 audio gram No observ ation record ed. [email or web address] Not Available 20:11:02 Result Notes None recorded. Problems Name Problem SNOMED Code Status Onset Date Resolution Date Notes Provider Name and Address Organization Details Recorded Time Abnormal findings on diagnosti c imaging of skull and head 981726693 Active 2021 Abnormal findings on diagnosti c imaging of skull and head, not elsewhere classifie d; Note: Date Diagnosed : 06/18/2021 3:57 PM (R93.0) Not Available [facility] 4 02:23:07 Impacted cerumen in left ear 90039378976 86767 Active 2022 Impacted cerumen, left ear; Note: Date Diagnosed : 02/28/2022 1:07 PM (H61.22) Not Available [facility] 4 02:23:39 Dizziness and giddiness 872913823 Active 2021 Dizziness and giddiness ; Note: Date Diagnosed : 05/18/2021 9:43 AM (R42) Not Available [facility] 4 02:23:32 Sensorine ural hearing loss 14146592 Active 2021 Sensorine ural hearing loss, unilatera l, right ear, with unrestric kj hearing on the contralat eral side; Note: Date Diagnosed : 05/18/2021 9:43 AM (H90.41) Not Available [facility] 4 02:23:08 Tinnitus of right ear 41400779676 08 Active 2021 Tinnitus, right ear; Note: Date Diagnosed : 05/18/2021 9:43 AM (H93.11) Not Available [facility] 4 02:23:09 Problem Notes None recorded. Procedures Surgical History None recorded. Imaging Results Imaging Date Name Status LastModified by Organ [facility] Details LastModified Time 05/18/2021 imaging/diagno stic result completed Information not available 10/02/2023 20:09:31 06/07/2021 imaging/diagno stic result completed Information not available 10/02/2023 20:09:41 06/18/2021 imaging/diagno stic result completed Information not available 10/02/2023 20:09:44 07/13/2021 imaging/diagno stic result completed Information not available 10/02/2023 20:09:49 07/13/2021 imaging/diagno stic result completed Information not available 10/02/2023 20:09:53 02/20/2023 audiogram completed Information not available 10/02/2023 20:10:08 02/21/2022 audiogram completed Information not available 10/02/2023 20:10:11 07/16/2021 audiogram completed Information not available 10/02/2023 20:10:49 07/25/2022 audiogram completed Information not available 10/02/2023 20:10:50 08/09/2021 audiogram completed Information not available 10/02/2023 20:10:52 08/19/2022 audiogram completed Information not available 10/02/2023 20:10:54 08/23/2021 audiogram completed Information not available 10/02/2023 20:10:57 09/06/2021 audiogram completed Information not available 10/02/2023 20:11:02 Procedure Notes None recorded. Medical Equipment None Reported. Allergies Allergen ID Allergen Name Allergen Category Reaction Reaction Severity Criticality Documentation Date Start Date Code Code System Note Provider Name and Address Organization Details Recorded Time 64391 Product containin g penicilli n (product) medicatio n other Not available Not available 06/24/2023 12030 8001 SNOMED React ion: other react ion, Unkno wn; Not Available [facility] 4 00:52:54 Medications Name Sig Start Date Stop Date Status Note LastModified by Organization Details LastModified Time atorvastat in 20 mg tablet TAKE 1 TABLET BY MOUTH AT BEDTIME active Not Available Not Available No t Available nicotine 14 mg/24 hr daily transderma l patch APPLY 1 PATCH TRANSDERM ALLY DAILY active Not Available Not Available No t Available ipratropiu m 0.5 mg-albuter ol 3 mg (2.5 mg base)/3 mL nebulizati on soln INHALE 1 VIAL (3ML) VIA NEBULIZER EVERY 6 HOURS NEEDED FOR WHEEZING active Not Available Not Available No t Available azithromyc in 250 mg tablet TAKE 2 TABLETS BY MOUTH TODAY, THEN TAKE 1 TABLET DAILY FOR 4 DAYS DIRECTED active Not Available Not Available No t Available prednisone 20 mg tablet TAKE 2 TABLETS BY MOUTH EVERY DAY active Not Available Not Available No t Available benzonatat e 100 mg capsule TAKE 1 CAPSULE BY MOUTH THREE TIMES DAILY NEEDED active Not Available Not Available No t Available clotrimazo le-betamet hasone 1 %-0.05 % topical cream APPLY TOPICALLY TWICE A DAY FOR 2 WEEKS active Not Available Not Available No t Available lisinopril 10 mg tablet TAKE 1 TABLET BY MOUTH DAILY active Not Available Not Available No t Available hydroxyzin e HCl 25 mg tablet TAKE 1 TABLET BY MOUTH TWICE A DAY NEEDED FOR ANXIETY FOR 30 DAYS active Not Available Not Available No t Available lorazepam 1 mg tablet 2021 active Medicatio n ID: [id number] Du ration Value: 1 Prescrib ed By Name: Tori [place] MD Brand Name: lorazepam Send Method: E-Prescri bed Subs Allowed: subs OK Specia l Instructi on: Take 1 tab 1/2 hour before test. Requires a driver trainee. M edication GenericNa me: lorazepam Not Available Not Available Not Available albuterol sulfate HFA 90 mcg/actuat ion aerosol inhaler INHALE 2 PUFFS EVERY 4 TO 6 HOURS NEEDED FOR SHORTNESS OF BREATH OR FOR WHEEZE active Not Available Not Available No t Available fluticason e propionate 50 mcg/actuat ion nasal spray,susp ension SHAKE LIQUID AND USE 1 SPRAY IN EACH NOSTRIL EVERY DAY active Not Available Not Available No t Available nicotine 7 mg/24 hr daily transderma l patch APPLY 1 PATCH TO SKIN ONCE DAILY FOR 14 DAYS active Not Available Not Available No t Available Vitals None Recorded Social History None recorded. Functional Status None recorded. Mental Status None recorded. Family History Nothing Reported. Medical History No medical history recorded. Gynecological HistoryNo gynecological history recorded. Obstetrics History GPAL:G 0 P 0 0 0 0 Past Encounters Encounter ID Performer Location Encounter Start Date Encounter Closed Date Diagnosis/Indication Diagnosis SNOMED-CT Code Diagnosis ICD10 Code Diagnosis Note [id number] [facility] [place] 100 [facility] 100 [facility] [address] 08/28/2023 13:57:54 09/01/2023 15:19:27 Sensorineural hearing loss 54026049 H90.41 [id number] [facility] [place] 100 [facility] [place] [address] [place] [address] 05/27/2024 16:15:19 05/31/2024 11:53:34 Sensorineural hearing loss 95571509 H90.41 Health Concerns Section Related Observation LastModified by Organization Detai ls LastModified Time None Recorded Concern Status LastModified by Organization Details LastModified Time None Recorded Advance Directives Directive None Recorded Payers Encounter Date Sequence Insurance Name Policy Number Policy Barraza Covered Member ID Barraza Member ID Guarantor Name 08/28/2023 1 [facility] [place] [place] [id number] Miladys Maddox [id number] Miladys Maddox 05/27/2024 1 [facility] [place] [place] [id number] Miladys Maddox [id number] Miladys Maddox Notes Date Note Type Note Provider Name and Address Organization Details Recorded Time 08/28/2023 text/html Patient has a right unilateral SNHL. Patient has no hearing aid benefit. Currently wearing a Widex Moment 440 canal hearing dispensed 08/09/2021. Tinnitus concerns - has not been using yamilet program - reminded to utilize to help w/ tinnitus fluctuations. ANNETTA JEONG, AUD [address], [address], [facility] - [facility] 08/28/2023 14:23:57 05/27/2024 text/html Patient has a right unilateral SNHL. Patient has no hearing aid benefit. Currently wearing a Widex Moment 440 canal hearing dispensed 08/09/2021. Tinnitus concerns - has not been using yamilet program - reminded to utilize to help w/ tinnitus fluctuations.CL & CK - aid working fine. Not having as much issue with tinnitus recently seems to have habituated to it now. 6 mo appt made. ANNETTA JEONG, AUD 100 [facility],[place] [address], [place], [address], [facility] 05/27/2024 16:17:49 OBGyn Episode No OBEpisode recorded.
--- OUTSIDE RECORDS SUMMARY | 2024-06-09 10:03 | XMS_ITS | Clinical Summary ---
Author Organization [facility] ity Address [address] [place] [address] Care Team Providers Care Broadcasting Equipment Mechanic Name Role Phone Kandy Jarvis MD Primary Care Provider Social History Tobacco Use Types Packs/Day Years Used Date Smoking Tobacco: Never Assessed Comments Unknown Sex and Gender Information Value Date Recorded Sex Assigned at Not on file Legal Sex Female 11:08 AM EST Gender Identity Not on file Sexual Orientation Not on file Plan of Treatment Health Maintenance Due Date Last Done Comments Breast Cancer Screening 1965 Hepatitis B Vaccines (1 of 3 - 19+ 3-dose series) 12/09/1983 Cervical Cancer Screening: P ap Smear 1985 Pneumococcal Vaccine: 50+ Ye ars (1 of 1 - PCV) 2014 Zoster Vaccines (1 of 2) 2014 COVID-19 Vaccine ( - 2023-2 5 season) 2023 Influenza Vaccine (Season Ended) 2024 DTaP,Tdap,and Td Vaccines (2 - Td or Tdap) 03/04/2026 03/04/2016 RSV Immunization Adult Patie nts (1 - 1-dose 75+ series) 12/09/2039 HIB Vaccines Aged Out No longer eligi ble based on patient's age to complete this topic HPV Vaccines Aged Out No longer eligi ble based on patient's age to complete this topic Hepatitis A Vaccines Aged Out No long er eligible based on patient's age to complete this topic IPV Vaccines Aged Out No longer eligi ble based on patient's age to complete this topic MMR Vaccines Aged Out No longer eligi ble based on patient's age to complete this topic Meningococcal ACWY Vaccine Aged Out N o longer eligible based on patient's age to complete this topic Meningococcal B Vaccine Aged Out No l onger eligible based on patient's age to complete this topic Pneumococcal Vaccine: Pediat rics (0 to 5 Years) and At-Risk Patients (6 to 64 Years) Aged Out No longer eligi ble based on patient's age to complete this topic RSV Immunization Patients Un glendy 20 months Aged Out No longer eligible b ased on patient's age to complete this topic Varicella Vaccines Aged Out No longer eligible based on patient's age to complete this topic Care Teams Broadcasting Equipment Mechanic Relationship Specialty Start Date End Date Kandy Jarvis MD PCP - General Internal Medicine 03/04/16
[2024-06-09 10:06] VITALS: PULSE 107; O2SAT 97
== END 2024-06-09 10:18 | disposition home or self-care (01) ==
LOC: HO.HGI 09:23
PROVIDERS: PCP Internal Medicine; Visit Provider Nurse Practitioner Family
DX: K92.1 Melena (principal); J44.9 Chronic obstructive pulmonary disease, unspecified
CPT/HCPCS: 99204

== ENCOUNTER 2024-06-09 09:23 | Outpatient (REF) | payer OTHER, MEDICAID, SELFPAY ==
[2024-06-09 13:02] LABS: Hematocrit 51.3 % (37.0-47.0); Hemoglobin 17.9 g/dl (12.0-16.0); Mean Corpuscular HGB Conc 34.9 g/dl (31.0-35.0); Mean Corpuscular Hemoglobin 35.5 pg (27.0-33.0); Mean Corpuscular Volume 101.8 fL (80.0-98.0); Mean Platelet Volume 9.5 fL (9.4-12.3); Platelet Count 266 X10*3/uL (160-400); Red Blood Count 5.04 X10*6/uL (4.20-5.50); Red Cell Distribution Width 13.2 % (11.0-16.0); White Blood Count 10.2 X10*3/uL (4.8-10.8)
[2024-06-09 13:11] LABS: INTERNATIONAL NORM RATIO 0.9 (0.9-1.1); Prothrombin Time 10.1 SEC (10.9-12.4)
--- OUTSIDE RECORDS SUMMARY | 2024-06-09 13:41 | XMS_ITS | Clinical Summary ---
Author Organization [facility] ity Address [address] [place] [address] Care Team Providers Care Pediatric Orthodontist Name Role Phone Kandy Jarvis MD Primary [...] age to complete this topic Care Teams Pediatric Orthodontist Relationship Specialty Start Date End Date Kandy Jarvis MD PCP - General Internal Medicine 03/04/16
[2024-06-09 13:47] LABS: Alanine Aminotransferase 28 U/L (0-31); Albumin Level 4.4 g/dL (3.5-5.0); Alkaline Phosphatase 79 U/L (39-117); Anion Gap 16 (12-20); Aspartate Amino Transferase 42 U/L (5-31); Bilirubin Total 0.4 mg/dL (0.0-1.0); Blood Urea Nitrogen 11 mg/dL (9-16); C Reactive Protein 0.13 mg/dL (< or = 0.50); Calcium 9.8 mg/dL (8.4-10.2); Carbon Dioxide 25 mmol/L (22-29); Chloride 101 mmol/L (96-108); Estimated Glomerular Filt Rate > 60; Glucose Random 114 mg/dL (60-115); Iron 207 mcg/dL (30-160); Percent Iron Saturation 58 % (15-50); Potassium 3.8 mmol/L (3.3-5.1); Sodium 138 mmol/L (135-145); Total Iron Binding Capacity 358 mcg/dL (228-428); Total Protein 7.5 g/dL (6.5-8.0); Unsaturated Iron Binding 151 ug/dL
[2024-06-09 14:02] LABS: Ferritin 387 ng/mL (10-250)
[2024-06-10 23:29] LABS: Transglutaminase IgA <1.0 U/mL
== END 2024-06-09 09:24 | disposition home or self-care (01) ==
LOC: HO.LAB 09:23
PROVIDERS: PCP Internal Medicine; Visit Provider Nurse Practitioner Family
DX: K92.1 Melena (principal); Z83.79 Family history of other diseases of the digestive system; D64.9 Anemia, unspecified
CPT/HCPCS: 36415; 80053; 82728; 83540; 85027; 85610; 86140; 86364

== ENCOUNTER 2024-06-11 11:53 | Outpatient (REF) | payer OTHER, MEDICAID, SELFPAY ==
--- OUTSIDE RECORDS SUMMARY | 2024-06-11 12:44 | XMS_ITS | Data Portability ---
Author Organization [place] - [facility], Allergy Address [address] [address] Assessment Encounter Date Assessment Date Assessment LastModified by Organization Details LastModified Time 08/28/2023 08/28/2023 CL & CK - aid working fine. Not having as much issue with tinnitus recently seems to have habituated to it now. 6 mo appt made Not available 08/28/2023 14:23:48 05/27/2024 05/27/2024 Patient dropped off right aid. 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 call for PU when back from repair [email or web address] Not available 05/27/2024 16:16:56 Plan of Treatment [...] diagnosti c imaging of skull and head [id number] Active 2021 Abnormal findings on diagnosti c imaging of skull and head, not elsewhere classifie d; Note: Date Diagnosed : 06/18/2021 3:57 PM (R93.0) Not Available [facility] 4 02:23:07 Impacted cerumen in left ear [id number] 01405 Active 2022 Impacted cerumen, left ear; Note: Date Diagnosed : 02/28/2022 1:07 PM (H61.22) Not Available [facility] 4 02:23:39 Dizziness and giddiness 964812523 Active 2021 Dizziness and giddiness ; Note: Date Diagnosed : 05/18/2021 9:43 AM (R42) Not Available [facility] 4 02:23:32 Sensorine ural hearing loss 50244073 Active 2021 Sensorine ural hearing loss, unilatera l, right ear, with unrestric kj hearing on the contralat eral side; Note: Date Diagnosed : 05/18/2021 9:43 AM (H90.41) Not Available [facility] 4 02:23:08 Tinnitus of right ear [id number] 08 Active 2021 Tinnitus, right ear; Note: Date Diagnosed : 05/18/2021 9:43 AM (H93.11) Not Available [facility] 4 02:23:09 Problem Notes None recorded. Procedures Surgical History None recorded. Imaging Results Imaging Date Name Status LastModified by [facility] Details LastModified Time 05/18/2021 imaging/diagno stic result [...] Name and Address Organization Details Recorded Time 83145 Product containin g penicilli n (product) medicatio n other Not available Not available 06/24/2023 58661 8001 SNOMED React ion: other react ion, Unkno wn; Not Available [facility] 4 00:52:54 Medications Name Sig Start Date [...] mg tablet 2021 active Medicatio n ID: [id number] Du ration Value: 1 Prescrib ed By Name: Tori Greenwood MD Brand Name: lorazepam Send Method: E-Prescri bed Subs Allowed: subs OK Specia l Instructi on: Take 1 tab 1/2 hour before test. 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 M edication GenericNa me: lorazepam Not Available [...] [id number] [place] 100 [facility] ite 100 [facility] [place] [address] 08/28/2023 13:57:54 09/01/2023 15:19:27 Sensorineural hearing loss [id number] H90.41 [id number] [facility] [place] 100 [facility] ite [address] [place] [address] 05/27/2024 16:15:19 05/31/2024 11:53:34 Sensorineural hearing loss 56682231 H90.41 Health Concerns Section Related Observation LastModified by Organization Detai ls LastModified Time None Recorded Concern Status LastModified by Organization Details LastModified Time None Recorded Advance Directives Directive None Recorded Payers Encounter Date Sequence Insurance Name Policy Number Policy Barraza Covered Member ID Barraza Member ID Guarantor Name 08/28/2023 1 [facility] [id number] Miladys Maddox [id number] Miladys Maddox 05/27/2024 1 [facility] [id number] Miladys Maddox [id number] Miladys Maddox Notes Date Note Type Note Provider Name and Address Organization Details Recorded Time 08/28/2023 text/html Patient has a right unilateral SNHL. Patient has no hearing aid benefit. Currently wearing a Widex Moment 440 canal hearing dispensed 08/09/2021. Tinnitus concerns - has not been using yamilet program - reminded to utilize to help w/ tinnitus fluctuations. ANNETTA JEONG, AUD [address], [address], [facility] - [facility] 08/28/2023 14:23:57 05/27/2024 text/html Patient has a [...] mo appt made. ANNETTA JEONG, AUD 100 [facility],[place] [address], [place], [address], [facility] 05/27/2024 16:17:49 OBGyn Episode No OBEpisode recorded.
--- OUTSIDE RECORDS SUMMARY | 2024-06-11 12:44 | XMS_ITS | Clinical Summary ---
Author Organization [facility] ity Address [address] [place] [address] Care Team Providers Care Lead Mobile Developer Name Role Phone Kandy Jarvis MD Primary [...] age to complete this topic Care Teams Lead Mobile Developer Relationship Specialty Start Date End Date Kandy Jarvis MD PCP - General Internal Medicine 03/04/16
[2024-06-17 17:43] LABS: Calprotectin, Fecal 165 mcg/g
== END 2024-06-11 11:54 | disposition home or self-care (01) ==
LOC: HO.LNP 11:53
PROVIDERS: Visit Provider Nurse Practitioner Family
DX: K92.1 Melena (principal)
CPT/HCPCS: 83993

== ENCOUNTER 2024-06-28 10:15 | Outpatient (REF) | payer OTHER, MEDICAID, SELFPAY ==
--- NOTE | ~2024-06-28 | CT_ITS ---
CLINICAL HISTORY: K92.1 - Melena --- Additional Notes or Special Instructions: CT appt scheduled for 06 28 Exam: CT enterography with intravenous contrast. Comparison: None. Findings: CT abdomen: Lung bases are clear. No acute bony lesions. Degenerative disc disease and degenerative facet disease at the L4-5 disc level. Low-attenuation throughout the liver is indicative of fatty infiltration. No focal hepatic lesion. Mild dilation of the intrahepatic bile ducts measuring up to 6 mm. Common bile duct is of normal caliber. No discrete intraluminal filling defects seen within the common bile duct. No pancreatic ductal dilatation seen. No calcified gallstones or gallbladder wall thickening. Spleen, pancreas, adrenal glands, and kidneys are unremarkable for acute findings. Moderate fluid distention of the stomach. No hyperenhancement of the gastric mucosa. No gastric wall thickening. Fluid-filled loops of nondilated small bowel with scattered small bowel air-fluid levels. No free fluid or free air. No enlarged lymph nodes. CT pelvis: Liquid stool throughout the colon. Moderate sigmoid diverticulosis without diverticulitis. Scattered colonic air-fluid levels. The appendix is not visualized. No free fluid or free air. Impression: Fluid-filled stomach, small bowel, and colon. Correlation with the oral contrast agent utilized for this examination is suggested. Specifically, if VoLumen was utilized, this is the expected finding with VoLumen administration. If enteric contrast was not utilized, this would be suggestive of a diffuse infectious or inflammatory gastro-enterocolitis. Colonic diverticulosis without diverticulitis. This document has been electronically signed by: Denny Durand MD on 06/29/2024 08:43:33
--- OUTSIDE RECORDS SUMMARY | 2024-06-28 10:51 | XMS_ITS | Clinical Summary ---
Author Organization [facility] ity Address [address] [place] [address] Care Team Providers Care Refrigerated Company Driver Name Role Phone Kandy Jarvis MD Primary [...] age to complete this topic Care Teams Refrigerated Company Driver Relationship Specialty Start Date End Date Kandy Jarvis MD PCP - General Internal Medicine 03/04/16
--- OUTSIDE RECORDS SUMMARY | 2024-06-28 10:51 | XMS_ITS | Data Portability ---
Author Organization [place] - [facility], Allergy Address [address] [address] Assessment Encounter Date Assessment Date Assessment LastModified by Organization Details LastModified Time 08/28/2023 08/28/2023 CL & CK - aid working fine. Not having as much issue with tinnitus recently seems to have habituated to it now. 6 mo appt made [email or web address] Not available 08/28/2023 14:23:48 05/27/2024 05/27/2024 Patient dropped off right aid. 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 call for PU when back from repair [email or web address] Not available 05/27/2024 16:16:56 Plan of Treatment [...] diagnosti c imaging of skull and head 374601779 Active 2021 Abnormal findings on diagnosti c imaging of skull and head, not elsewhere classifie d; Note: Date Diagnosed : 06/18/2021 3:57 PM (R93.0) Not Available [facility] 4 02:23:07 Impacted cerumen in left ear [id number] 64931 Active 2022 Impacted cerumen, left ear; Note: Date Diagnosed : 02/28/2022 1:07 PM (H61.22) Not Available [facility] 4 02:23:39 Dizziness and giddiness 010397921 Active 2021 Dizziness and giddiness ; Note: Date Diagnosed : 05/18/2021 9:43 AM (R42) Not Available [facility] 4 02:23:32 Sensorine ural hearing loss 09901150 Active 2021 Sensorine ural hearing loss, unilatera l, right ear, with unrestric kj hearing on the contralat eral side; Note: Date Diagnosed : 05/18/2021 9:43 AM (H90.41) Not Available [facility] 4 02:23:08 Tinnitus of right ear 25701949590 08 Active 2021 Tinnitus, right ear; Note: Date Diagnosed : 05/18/2021 9:43 AM (H93.11) Not Available [facility] 4 02:23:09 Problem Notes None recorded. Procedures Surgical History None recorded. Imaging Results Imaging Date Name Status LastModified by [facility] Details LastModified Time 05/18/2021 imaging/diagno stic result [...] Name and Address Organization Details Recorded Time 78045 Product containin g penicilli n (product) medicatio n other Not available Not available 06/24/2023 51839 8001 SNOMED React ion: other react ion, Unkno wn; Not Available [facility] 4 00:52:54 Medications Name Sig Start Date [...] mg tablet 2021 active Medicatio n ID: [id number] Du ration Value: 1 Prescrib ed By Name: Tori Greenwood MD Brand Name: lorazepam Send Method: E-Prescri bed Subs Allowed: subs OK Specia l Instructi on: Take 1 tab 1/2 hour before test. 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 M edication GenericNa me: lorazepam Not Available [...] [id number] [place] 100 [facility] ite 100 [facility] [place] [address] 08/28/2023 13:57:54 09/01/2023 15:19:27 Sensorineural hearing loss 71334418 H90.41 [id number] [facility] [place] 100 [facility] ite 100 [place] [address] 05/27/2024 16:15:19 05/31/2024 11:53:34 Sensorineural hearing loss 04007699 H90.41 Health Concerns Section Related Observation LastModified by Organization Detai ls LastModified Time None Recorded Concern Status LastModified by Organization Details LastModified Time None Recorded Advance Directives Directive None Recorded Payers Insurance Date Sequence Insurance Name Policy Number Policy Barraza Covered Member ID Barraza Member ID Guarantor Name 05/27/2024 1 [facility] [id number] Miladys Maddox [id number] Miladys Maddox Notes Date Note Type Note Provider Name and Address Organization Details Recorded Time 08/28/2023 text/html Patient has a right unilateral SNHL. Patient has no hearing aid benefit. Currently wearing a Widex Moment 440 canal hearing dispensed 08/09/2021. Tinnitus concerns - has not been using yamilet program - reminded to utilize to help w/ tinnitus fluctuations. ANNETTA JEONG, [facility] [address], [address], [facility] 08/28/2023 14:23:57 05/27/2024 text/html Patient has a [...] now. 6 mo appt made. ANNETTA JEONG, [facility] 100 [facility],[place] [address], [place], [address], [facility] 05/27/2024 16:17:49 OBGyn Episode No OBEpisode recorded.
[2024-06-28] MEDS: iohexoL 350 MG/ML 75 ML INFUS..BTL 85 ML IV (11:43)
[2024-06-28] MEDS: Sorbitol/Mannit/Xanth Imaging 500 ML LIQUID 1500 ML PO (11:43)
== END 2024-06-28 10:16 | disposition home or self-care (01) ==
LOC: HO.CT 10:15
PROVIDERS: PCP Internal Medicine; Visit Provider Nurse Practitioner Family
DX: K92.1 Melena (principal)
CPT/HCPCS: 74177; Q9967

== ENCOUNTER → 2024-06-28 10:17 | Outpatient (BNV) | payer OTHER, MEDICAID, SELFPAY | PROVIDERS: PCP Internal Medicine; Visit Provider Radiology Diagnostic Radiology | DX: K57.30 Diverticulosis of large intestine without perforation or abscess without bleeding (principal) | CPT/HCPCS: 74177 ==

== ENCOUNTER 2024-12-16 12:52 | Outpatient (AMB) | payer OTHER, SELFPAY ==
[2024-12-16 12:55] VITALS: BP 160/78; PULSE 116; RESP 18; O2SAT 96; BMI 24.2
--- NOTE | 2024-12-16 12:55 | A.OFFPC_ITS ---
Vital Signs 12/16/24 12:55 Height 5 ft 8 in Weight 159 lb 6 oz BMI 24.2 BP 160/78 H Blood Pressure Location Lt brachial Position Sitting Respiration 18 Pulse 116 H Pulse Source Pulse Oximeter Temp Source Temporal Artery Scan Pulse Oximetry (%) 96 Oxygen Delivery Method Room Air Intake Visit Reasons: annual exam - see comments Cryptanalyst Required: No Accompanied by: Self / Same As Patient Allergies Penicillin Allergy (Unknown, Uncoded 12/16/24 13:09) Unknown Medication List - Last Reconciled 12/16/24 by Sabine Bledsoe MD albuterol sulfate 90 mcg/actuation (Ventolin HFA) 2 puffs inhalation Q4-6H PRN blood pressure monitor As directed fluticasone propion-salmeterol 250-50 mcg/dose (Wixela Inhub) 1 inh inhalation Q12H hydroxyzine HCl 25 mg PO DAILY PRN 30 days ipratropium-albuterol 0.5 mg-3 mg(2.5 mg base)/3 mL 3 mL inhalation Q6H PRN lisinopril 10 mg PO DAILY 90 days nicotine 1 patch transdermal Q24H 14 days Tobacco use date assessed: 12/16/24 Dental Screening Dental Screen Date: 12/16/24 HPI HPI Comments History of Present Illness Details The patient is a 59-year-old female presenting for her annual physical exam. She has a history of COPD and uses an albuterol rescue inhaler as needed. A prior prescription for Wixela was not filled due to cost. Her medical history includes hypertension, managed with lisinopril 10 mg daily, which she reports is effective. She was prescribed atorvastatin for hyperlipidemia but has been non-adherent due to concerns about side effects. Past surgical history includes a tonsillectomy at age 16 or 17 and a LEEP procedure. Her last colonoscopy in 2022 was normal, with the next one due in 2032. Last year's Pap smear and subsequent biopsy were normal. Family history is notable for her father who from congestive heart failure at age 88, and her mother who at 93 with a history of celiac disease, lung cancer, and non-Hodgkin's lymphoma. The patient smokes about one pack of cigarettes per day and drinks alcohol daily, consuming a couple of shots before bed. She reports minimal depression related to feeling isolated at home. She has a known allergy to penicillin. - Lung cancer screening: The patient is scheduled for a low-dose CT scan on February 08 due to her history of COPD and smoking. - Breast cancer screening: The patient i s due for a mammogram, as her last one was in July of the previous year. - Cervical cancer screening: The patient had a Pap smear with a biopsy last year. - Colon cancer screening: The patient's last colonoscopy was in 2022 and was normal; the next is scheduled for 2032. - Vaccinations: Her tetanus vaccine is d ue in 2026. - Cardiovascular risk reduction: Discuss ed the importance of taking statins to lower cholesterol and reduce the risk of heart attack and stroke, especially given her smoking status. - Smoking cessation: The patient smokes about a pack a day and plans to try quitting; the Layar website was recommended. [facility] Medical History Hypertension High cholesterol COPD (chronic obstructive pulmonary disease) Nicotine dependence, cigarettes, uncomplicated Dysplasia of cervix, low grade (MATILDA 1) Hearing loss in right ear Tinnitus of right ear Surgical History Hx of colonoscopy Status post LEEP (loop electrosurgical excision procedure) of cervix History of tonsillectomy Family History Father Smoker CHF (congestive heart failure) Mother Non Hodgkin's lymphoma Pacemaker Lung cancer Celiac disease Paternal Grandmother History of breast cancer Social History (Updated 12/16/24 @ 13:19 by Sabine Bledsoe MD) Housing: House Alcohol intake: current Alcohol intake frequency: 0-2 drinks per day Alcohol type: hard liquor Patient Tobacco Use Status: Current everyday Tobacco user Tobacco use type: Cigarette Cigarette Packs Per Day: 1 Cigarettes Per Day: 20 Years Smoked: (onset 15yo, 1ppd x 40yrs, 40pyh) e-Cigarette/Vaping Use: Never Used Second Hand Smoke Exposure: Yes service: No Current occupational status: unemployed Sexual orientation: Straight/Heterosexual Gender identity: Female Cognitive needs: No Hearing needs: Yes (hearing aide Right Ear) Vision needs: Yes (glasses) Female Reproductive History Menstrual Age of Menarche: 10 Questionnaire PHQ-9 Over the last 2 weeks, how often have you been bothered by any of the following problems? 1. Little interest or pleasure in doing things: not at all 2. Feeling down, depressed, or hopeless: several days 3. Trouble falling or staying asleep, or sleeping too much: several days 4. Feeling tired or having little energy: several days 5. Poor appetite or overeating: not at all 6. Feeling bad about yourself - or that you are a failure or have let yourself or your family down: not at all 7. Trouble concentrating on things, such as reading the newspaper or watching television: not at all 8. Moving or speaking so slowly that other people could have noticed. Or the opposite - being so fidgety or restless that you have been moving around a lot more than usual: not at all 9. Thoughts that you would be better off or of hurting yourself in some way: not at all Total score: 3 Depression Screening Interpretation: Positive Depression Screening Follow-up: E xisting condition and Follow-up Visit Requested Depression Screening Done: Yes 85307 - PHQ-9 Billing: Yes Source: Developed by Drs. Jt Harris, Miley Diop, Wei Christine and colleagues, with an educational josefina from [employer]. Thrive Questionnaire Date Thrive assessed: 12/16/24 I am a: Patient What is your living situation today?: I have a steady place to live Within the past 12 months, did the food you bought not last and you didn't have the money to get more?: Never true Within the past 12 months, did you worry whether your food would run out before you got money to buy more?: Never true Do you have trouble paying for medicines?: No Do you have trouble getting transportation to medical appointments?: No Do you have trouble paying your heating and electricity bill?: No Do you have trouble taking care of your child, family member or friend?: No Do you have trouble with day-to-day activities such as bathing, preparing meals, shopping, managing finances, etc.?: No Are you currently unemployed and looking for a job?: No Are you interested in more education?: No Please select the resources that you would like help with: None Currently or been in a relationship where the following occur: No concerns reported THRIVE Score: 0 AUDIT C Alcohol Use Questionnaire (AUDIT-C) 1. How often do you have a drink containing alcohol?: 2-3 times a week 2. How many drinks containing alcohol do you have on a typical day when you are drinking?: 3 or 4 3. How often do you have six or more drinks on one occasion?: Less than monthly Total Score: 5 HOLLY-7 AMB Questionnaire HOLLY-7 Date HOLLY - 7 assessed: 12/16/24 Feeling nervous, anxious, or on edge: 0 = Not at all Not being able to stop or control worryin = Not at all Worrying too much about different things: 0 = Not at all Trouble relaxin = Not at all Being so restless that it is hard to sit still: 0 = Not at all Becoming easily annoyed or irritable: 0 = Not at all Feeling afraid as if something awful might happen: 0 = Not at all Total HOLLY-7 score (0-4 normal; 5-9 mild; 10-14 moderate; 15-21 severe): 0 Source: Developed by Drs. Jt Harris, Miley Diop, Wei Christine and colleagues, with an educational josefina from [employer]. HOLLY-7 Assessment Billing HOLLY-7 Assessment Tool: HOLLY-7 Assessment 87905 Review of Systems Const All systems reviewed & are unremarkable except as noted in HPI and below Card Denies chest pain at rest, Denies chest pain with activity, Denies edema, Denies irregular heart rhythm, Denies claudication, Denies dyspnea, Denies dyspnea on exertion, Denies orthopnea, Denies paroxysmal nocturnal dyspnea and Denies slow heart rate Resp Denies cough, Denies dyspnea and Denies dyspnea on exertion GI Denies abdominal pain, Denies change in bowel habits, Denies excessive flatus, Denies nausea and Denies vomiting Physical exam (Primary Care) Vital Signs: Last Vital Signs Pulse 116 H 12/16/24 12:55 Resp 18 12/16/24 12:55 BP 160/78 H 12/16/24 12:55 Pulse Ox 96 12/16/24 12:55 Oxygen Delivery Method Room Air 12/16/24 12:55 BMI result Body Mass Index 24.2 Tobacco/Smoking Status: Tobacco use Status Tobacco use date assessed 12/16/24 12/16/24 13:03 Patient Tobacco Use Status Current everyday Tobacco 12/16/24 13:03 Tobacco use type Cigarette 12/16/24 13:03 e-Cigarette/Vaping Use Never Used 12/16/24 13:03 Are you ready to quit: No Tobacco cessation counseling provided: Yes Items discussed: Nicotine replacement and QuitWorks Relapse Prevention: discussed the importance of a supportive environment, discussed negative mood or depression after quitting and weight gain after smoking is common Number of minutes spent counselin CPT code: 50095 - 4-10 Minutes PHQ-9: PHQ-9 Score PHQ-9: Total score 3 12/16/24 13:03 Depression Screening Interpretation: Positive Depression Screening Follow-up: Existing condition and Follow-up Visit Requested Thrive Assessment: Date of Thrive Assessment Date Thrive assessed 12/16/24 12/16/24 13:03 Currently or been in a relationship where the following occur: No concerns reported HENMT Head: Yes normal to inspection, Yes normocephalic and Yes atraumatic Ears: external ears normal Eyes General: appearance normal, both eyes and all related structures Eyelids: Yes eyelids normal Conjunctivae: conjunctivae normal Neck Neck: Yes normal visual inspection and Yes supple Resp Effort & Inspection: normal respiratory effort Auscultation: clear to auscultation bilaterally Cardio Jugular venous distension: no JVD Rate: regular rate Rhythm: regular rhythm Heart sounds: S1 normal heart sound present and S2 normal heart sound present GI Inspection: Yes normal to inspection Palpation (GI): Soft to palpation and nontender Auscultation: normal bowel sounds Skin General skin exam: no rashes or lesions noted Neuro General: no focal motor deficits Extrem General: Yes full ROM Psych Appearance: grossly normal Coding Level of Care Code Est Pt Prev Care 40-64y(28276) Diagnoses Physical exam Z00.00 Chronic obstructive pulmonary disease, unspecified COPD type J44.9 COPD type: unspecified COPD Additional Codes PHQ-9 - 27631 - PHQ-9 Billing: Yes ([id number]) HOLLY-7 Assessment Billing - HOLLY-7 Assessment Tool: HOLLY-7 Assessment 22838 ([id number]) Vital Signs *Quality* - CPT code: 67328 - 4-10 Minutes ([id number]) Time Spent (min) 30 Assessment & Plan Assessment & Plan (1) Physical exam: Code(s): Z00.00 - Encounter for general adult medical examination without abnormal findings Category: Medical (2) COPD (chronic obstructive pulmonary disease): Code(s): J44.9 - Chronic obstructive pulmonary disease, unspecified Category: Medical Qualifiers: COPD type: unspecified COPD Qualified Code(s): J44.9 - Chronic obstructive pulmonary disease, unspecified Plan Plan 1. Annual Health Maintenance The patient is due for a mammogram, and an order will be provided. The patient has a CT scan for lung cancer screening scheduled for February 08. Fasting blood work will be ordered to check cholesterol, glucose, and kidney and liver function. The patient was advised to fast for 8 hours before the blood test, which can be completed within the next three months. 2. Hyperlipidemia The patient was counseled on the benefits of statin therapy for preventing arterial plaque buildup and reducing cardiovascular risk, especially as a smoker. The patient agreed to start taking her prescribed atorvastatin once daily at bedtime. Liver function will be monitored with the planned blood work. 3. Hypertension The patient reports taking her lisinopril 10 mg daily. Her blood pressure was elevated in the office, which she attributed to anxiety and recent high salt intake. A blood pressure recheck is scheduled for her next visit, and she was advised to avoid a high-salt diet beforehand. 4. Tobacco Use Disorder/COPD The patient was counseled on smoking cessation. The Layar website was recommended as a resource to aid her quit attempt.
--- OUTSIDE RECORDS SUMMARY | 2024-12-16 15:52 | XMS_ITS | Data Portability ---
Author Organization [place] - [facility], Allergy Address [address] [address] Assessment Encounter Date Assessment Date Assessment LastModified by Organization Details LastModified Time 08/28/2023 08/28/2023 CL & CK - aid working fine. Not having as much issue with tinnitus recently seems to have habituated to it now. 6 mo appt made [email or web address] Not available 08/28/2023 14:23:48 05/27/2024 05/27/2024 Patient dropped off right aid. retention O-ring broke off and wax guards jammed into keg header tube - will send for in warranty repair. call for PU when back from repair [email or web address] Not available 05/27/2024 16:16:56 Plan of Treatment [...] Abnormal Flag Note LastModifiedBy Organization Detail LastModifiedTime 10/02/1905/18/2021 imagi ng/di agnos tic resul t No [...] Name and Address Organization Details Recorded Time Dizziness and giddiness 710793211 Active 2021 Dizziness and giddiness ; Note: Date Diagnosed : 05/18/2021 9:43 AM (R42) Not Available [facility] 4 02:23:32 Sensorine ural hearing loss 58749473 Active 2021 Sensorine ural hearing loss, unilatera l, right ear, with unrestric kj hearing on the contralat eral side; Note: Date Diagnosed : 05/18/2021 9:43 AM (H90.41) Not Available [facility] 4 02:23:08 Tinnitus of right ear [id number] 08 Active 2021 Tinnitus, right ear; Note: Date Diagnosed : 05/18/2021 9:43 AM (H93.11) Not Available [facility] 4 02:23:09 Abnormal findings on diagnosti c imaging of skull and head 005258265 Active 2021 Abnormal findings on diagnosti c imaging of skull and head, not elsewhere classifie d; Note: Date Diagnosed : 06/18/2021 3:57 PM (R93.0) Not Available [facility] 4 02:23:07 Impacted cerumen in left ear [id number] 91107 Active 2022 Impacted cerumen, left ear; Note: Date Diagnosed : 02/28/2022 1:07 PM (H61.22) Not Available [facility] 4 02:23:39 Problem Notes None recorded. Medical Equipment None Reported. Allergies Allergen ID Allergen Name Allergen Category Reaction Reaction Severity Criticality Documentation Date Start Date Code Code System Note Provider Name and Address Organization Details Recorded Time 36590 Product containin g penicilli n (product) medicatio n other Not available Not available 06/24/2023 30598 8001 SNOMED React ion: other react ion, Unkno wn; Not Available [facility] 4 00:52:54 Medications Name Sig Start Date [...] mg tablet 2021 active Medicatio n ID: [id number] Du ration Value: 1 Prescrib ed By Name: Tori Greenwood MD Brand Name: lorazepam Send Method: E-Prescri bed Subs Allowed: subs OK Specia l Instructi on: Take 1 tab 1/2 hour before test. 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 M edication MaribelNa me: [email or web address] Not Available Not Available Not [...] Diagnosis SNOMED-CT Code Diagnosis ICD10 Code Diagnosis IMO Codes Diagnosis Note [id number] ANNETTA JEONG, [place] HICKS [place] [address] [facility] [place] [address] 08/28/2023 13:57:54 09/01/2023 15:19:27 Sensorineural hearing loss [id number] H90.41 [id number] ANNETTA BREWEREVGERHARD THAYER HICKS [place] 100 [facility] [place] [address] 05/27/2024 16:15:19 05/31/2024 11:53:34 Sensorineural hearing loss 83062261 H90.41 Health Concerns Section Related Observation LastModified by Organization Detai ls LastModified Time None Recorded Concern Status LastModified by Organization Details LastModified Time None Recorded Advance Directives Directive None Recorded Payers Insurance Date Sequence Insurance Name Policy Number Policy Barraza Covered Member ID Barraza Member ID Guarantor Name 05/27/2024 1 [facility] [id number] Miladys Maddox [id number] Miladys Maddox Notes Date Note Type Note Provider Name and Address Organization Details Recorded Time 08/28/2023 text/html Patient has a right unilateral SNHL. Patient has no hearing aid benefit. Currently wearing a Widex Moment 440 canal hearing dispensed 08/09/2021. Tinnitus concerns - has not been using yamilet program - reminded to utilize to help w/ tinnitus fluctuations. GERHARD GONZALEZ [address], [address], [facility] - [facility] 08/28/2023 14:23:57 05/27/2024 text/html Patient has a [...] now. 6 mo appt made. ANNETTA JEONG, GERHARD 100 [facility],[address], [address], [facility] 05/27/2024 16:17:49 OBGyn Episode No OBEpisode recorded.
--- OUTSIDE RECORDS SUMMARY | 2024-12-16 15:52 | XMS_ITS | Clinical Summary ---
Author Organization [facility] ity Address [address] [place] [address] Care Team Providers Care Banking Teacher Name Role Phone Kandy Jarvis MD Primary Care Provider [phone] Social History Tobacco Use Types Packs/Day Years Used Date Smoking Tobacco: Never Assessed Comments Unknown Sex and Gender Information Value Date Recorded Sex Assigned at Not on file Legal Sex Female 11:08 AM EST Gender Identity Not on file Sexual Orientation Not on file Plan of Treatment Health Maintenance Due Date Last Done Comments Breast Cancer Screening 1965 Cervical Cancer Screening: P ap Smear 1985 Pneumococcal Vaccine: 50+ Ye ars (1 of 1 - PCV) 2014 Zoster Vaccines (1 of 2) 2014 Depression Screening 02/11/2024 COVID-19 Vaccine (1 - 2023-2 5 season) 2024 Influenza Vaccine (#1) 2024 DTaP,Tdap,and Td Vaccines (2 - Td [...] patient's age to complete this topic Hepatitis B Vaccines Aged Out No long er eligible [...] age to complete this topic Care Teams Banking Teacher Relationship Specialty Start Date End Date Kandy Jarvis MD PCP - General Internal Medicine 03/04/16
== END 2024-12-16 13:32 | disposition home or self-care (01) ==
LOC: HO.HMCH 12:53
PROVIDERS: PCP Internal Medicine; Visit Provider Internal Medicine
DX: Z00.00 Encounter for general adult medical examination without abnormal findings (principal); J44.9 Chronic obstructive pulmonary disease, unspecified

== ENCOUNTER → 2024-12-16 12:52 | Outpatient (BNVA) | payer OTHER, SELFPAY | PROVIDERS: PCP Internal Medicine; Visit Provider Internal Medicine | DX: Z00.00 Encounter for general adult medical examination without abnormal findings (principal); J44.9 Chronic obstructive pulmonary disease, unspecified; E78.5 Hyperlipidemia, unspecified; I10 Essential (primary) hypertension; F17.210 Nicotine dependence, cigarettes, uncomplicated; Z71.6 Tobacco abuse counseling; Z79.51 Long term (current) use of inhaled steroids | CPT/HCPCS: 96127 ==